=== PATIENT | male | born 1970 | race Caucasian/White ===

== ENCOUNTER 2021-12-08 13:15 | Emergency (ER) | payer OTHER ==
--- OUTSIDE RECORDS SUMMARY | 2021-12-08 13:40 | EXTERNAL MEDICAL SUMMARY RPT | Continuity of Care Document ---
:1970 Author Organization [facility] Address [address] [place] [address] Phone Allergies No information. Encounters No information. Medications No information. Problems date description facility [id number] Chest pain, unspecified [employer] Results No information.
[2021-12-08 14:38] LABS: BASOPHILS # (AUTO) 0.1 10^3/uL (0.0-0.1); BASOPHILS % (AUTO) 0.8 %; EOSINOPHILS # (AUTO) 0.2 10^3/uL (0.0-0.7); EOSINOPHILS % (AUTO) 2.6 %; HCT - HEMATOCRIT 42.6 % (42.0-52.0); HGB - HEMOGLOBIN 14.8 g/dL (14.0-18.0); LYMPHOCYTES # (AUTO) 1.8 10^3/uL (1.5-3.5); LYMPHOCYTES % (AUTO) 23.4 %; MEAN CORPUSCULAR HEMOGLOBIN 32.7 pg (27.0-31.0); MEAN CORPUSCULAR HGB CONC 34.7 g/dL (32.0-36.0); MEAN PLATELET VOLUME 9.8 fL (7.4-11.4); MONOCYTES # (AUTO) 0.6 10^3/uL (0.0-1.0); MONOCYTES % (AUTO) 8.2 %; NEUTROPHILS # (AUTO) 4.9 10^3/uL (1.5-6.6); NEUTROPHILS % (AUTO) 64.7 %; PLT - PLATELET COUNT 253 10^3/uL (130-450); RED BLOOD COUNT 4.53 10^6/uL (4.70-6.10); RED CELL DISTRIBUTION WIDTH 12.1 % (12.0-15.0); WHITE BLOOD COUNT 7.6 x10^3/uL (4.8-10.8)
[2021-12-08 14:50] LABS: ALBUMIN 4.9 g/dL (3.2-5.5); ALBUMIN/GLOBULIN RATIO 1.5 (1.0-2.2); BILIRUBIN,TOTAL 1.1 mg/dL (0.2-1.0); CALCIUM 9.7 mg/dL (8.5-10.3); CREATININE 0.8 mg/dL (0.6-1.2); POTASSIUM 4.2 mmol/L (3.5-5.0); TOTAL PROTEIN 8.1 g/dL (6.7-8.2)
--- NOTE | 2021-12-08 15:47 | ED Physician Documentation ---
History of Present Illness - Stated complaint Stated Complaint: CHEST PX - Chief complaint Chief Complaint: Cardiac - History obtained from History obtained from: Patient - History of Present Illness Timing: How many days ago (3) Pain level max: 5 Pain level now: 3 - Additonal information Additional information: Patient is a 51-year-old who presents to the emergency department with chest pain for the past 2 days. Initially on the left side of the chest, now is on the right side of the chest as well. Worse with movement, coughing. No fevers. No chills. Patient states that they were seen at [facility] urgent care and were told they had an elevated D-dimer so were sent here for a CT angiogram of the chest. The patient does take estradiol. Has not had any leg swelling. No recent travel. No mobilization. No history of DVT. Review of Systems Constitutional: denies: Fever, Chills Throat: denies: Sore throat Respiratory: reports: Cough (mild, dry). denies: Wheezing GI: denies: Vomiting, Diarrhea Skin: denies: Rash Musculoskeletal: denies: Neck pain, Back pain Neurologic: denies: Headache PD PAST MEDICAL HISTORY - Past Medical History Past Medical History: No - Allergies Allergies/Adverse Reactions: Allergies Allergy/AdvReac Type Severity Reaction Status Date / Time adhesive tape Allergy Rash Verified 12/08/21 13:20 Bleach (Sodium Hypochlorite) Allergy Rash Verified 12/08/21 13:20 metoclopramide [From Reglan] Allergy Unknown Verified 12/08/21 13:20 morphine Allergy Emesis Verified 12/08/21 13:20 prochlorperazine Allergy Emesis Verified 12/08/21 13:20 [From Compazine] - Living Situation Living Arrangement: reports: At home - Social History Does the pt smoke?: No Does the pt have substance abuse?: No - Family History Family history: reports: Non contributory PD ED PE NORMAL - Vitals Vital signs reviewed: Yes - General General: Alert and oriented X 3, No acute distress, Well developed/nourished - HEENT HEENT: Moist mucous membranes - Neck Neck: Supple, no meningeal sign - Cardiac Cardiac: RRR, No murmur, Strong equal pulses - Respiratory Respiratory: No respiratory distress, Clear bilaterally - Abdomen Abdomen: Soft, Non tender, Non distended - Derm Derm: Warm and dry - Extremities Extremities: No edema, No calf tenderness / cord - Neuro Neuro: Alert and oriented X 3 - Psych Psych: Normal mood, Normal affect Results - Vitals Vitals: Vital Signs - 24 hr 12/08/21 12/08/21 13:20 16:03 Temperature 36.5 C Heart Rate 63 57 L Respiratory 16 16 Rate Blood Pressure 149/82 H 128/76 O2 Saturation 99 100 Oxygen O2 Source Room air - EKG (time done) 1321 Rate: Rate (enter#) (63) Rhythm: NSR [place]: Normal Intervals: Normal VT QRS: Normal Ischemia: Normal ST segments - Labs Labs: Laboratory Tests 12/08/21 12/08/21 12/08/21 14:30 14:30 14:30 WBC 7.6 RBC 4.53 L Hgb 14.8 Hct 42.6 MCV 94.0 MCH 32.7 H MCHC 34.7 RDW 12.1 Plt Count 253 MPV 9.8 Neut # (Auto) 4.9 Lymph # (Auto) 1.8 [place] # (Auto) 0.6 Eos # (Auto) 0.2 Baso # (Auto) 0.1 Absolute Nucleated RBC 0.00 Nucleated RBC % 0.0 D-Dimer Sodium 138 Potassium 4.2 Chloride 100 L Carbon Dioxide 26 Anion Gap 12.0 BUN 13 Creatinine 0.8 Estimated GFR (MDRD) 102 Glucose 91 Calcium 9.7 Total Bilirubin 1.1 H AST 23 ALT 16 Alkaline Phosphatase 85 Troponin I High Sens 5.9 Total Protein 8.1 Albumin 4.9 Globulin 3.2 Albumin/Globulin Ratio 1.5 Lipase 27 12/08/21 16:01 WBC RBC Hgb Hct MCV MCH MCHC RDW Plt Count MPV Neut # (Auto) Lymph # (Auto) [place] # (Auto) Eos # (Auto) Baso # (Auto) Absolute Nucleated RBC Nucleated RBC % D-Dimer 371.3 H Sodium Potassium Chloride Carbon Dioxide Anion Gap BUN Creatinine Estimated GFR (MDRD) Glucose Calcium Total Bilirubin AST ALT Alkaline Phosphatase Troponin I High Sens Total Protein Albumin Globulin Albumin/Globulin Ratio Lipase - Rads (name of study) CT PA Radiology: Final report received, EMP read contemporaneously, See rad report (no acute abnormality) PD MEDICAL DECISION MAKING - ED course Complexity details: reviewed results, re-evaluated patient, considered differential (No ST elevation ME, no aortic dissection, no PE, no tension pneumothorax, no aortic aneurysm), d/w patient ED course: No acute findings on EKG, chest x-ray or laboratory testing. Patient is well- appearing, nontoxic. Afebrile. Possible pleurisy? No pneumothorax, aortic dissection or pulmonary embolus. No evidence of ACS. Patient counseled regarding signs and symptoms for which I believe and urgent re-evaluation would be necessary. Patient with good understanding of and agreement to plan and is comfortable going home at this time This document was made in part using voice recognition software. While efforts are made to proofread this document, sound alike and grammatical errors may occur. Departure - Departure Disposition: 01 Home, Self Care Clinical Impression: Chest pain Qualifiers: Chest pain type: unspecified Qualified Code(s): R07.9 - Chest pain, unspecified Condition: Good Instructions: ED Chest Pain NonCardiac Follow-Up: Your,doctor in 1 week [Other] Comments: Please follow-up with your doctor for further care. Your laboratory testing, EK G and CT pulmonary angiogram did not show any acute abnormalities at this time. Please return if you worsen. You can use Motrin or Tylenol as needed for pain. Discharge Date/Time: 12/08/21 17:10
[2021-12-08] MEDS ORDERED: IOPAMIDOL-300 100 ML VIAL ONE (15:49)
[2021-12-08 16:04] VITALS: BP 128/76
--- NOTE | 2021-12-08 16:40 | CT Report ---
PROCEDURE: ANGIO CHEST W/WO INDICATIONS: +chest pain, +d-dimer CONTRAST: IV CONTRAST: Optiray 320 ml: 80 PO CONTRAST: *NO PO CONTRAST TECHNIQUE: After the administration of intravenous contrast, 2 mm axial images were acquired from the pulmonary apices to the posterior costophrenic angles during the arterial phase. In addition, 1 mm lung kernel and 5 mm soft tissue kernel reconstructions were performed. 3-dimensional coronal oblique maximum int ensity projection (MIP) reformats, 8 mm axial MIP, and 5 mm coronal and sagittal MPR reformats were t hen performed through the thorax. For radiation dose reduction, the following was used: automated exp osure control, adjustment of mA and/or kV according to patient size. COMPARISON: None FINDINGS: Image quality: Excellent. Pulmonary arteries: Pulmonary arteries are normal in size, and demonstrate no intraluminal filling d efects to suggest central pulmonary embolism. Lungs and pleura: Lungs are clear. No pleural effusions or pneumothorax. Central and peripheral ai rways are patent. Mediastinum: Heart size is normal, without pericardial effusion. No mediastinal or hilar adenopathy . Thoracic aorta is normal in caliber and enhancement. Esophagus is normal in caliber, without hiat al hernia. Bones and chest wall: No suspicious bony lesions. Ribs and thoracic spine appear intact throughout. No axillary or supraclavicular adenopathy. Thyroid is unremarkable as visualized. Abdomen: Visualized upper abdominal solid organs appear normal in the early arterial phase of enhanc ement. IMPRESSION: No evidence acute pulmonary emboli. No evidence acute pulmonary process. CLINICAL RECOMMENDATION STATEMENTS: In patients <35 years with an ITN detected on CT, MRI, or extrathyroidal ultrasound, the Committee re commends further evaluation with dedicated thyroid ultrasound if the nodule is "e1 cm and has no susp icious imaging features, and if the patient has normal life expectancy. In patients "e35 years with an ITN detected on CT, MRI, or extrathyroidal ultrasound, the Committee r ecommends further evaluation with dedicated thyroid ultrasound if the nodule is "e1.5 cm and has no s uspicious imaging features, and if the patient has normal life expectancy. (ACR, 2014) Reviewed by: Cade Somers MD on 12/08/2021 4:39 PM PDT Approved by: Cade Somers MD on 12/08/2021 4:39 PM PDT Station ID: [id number]
[2021-12-08] MEDS ORDERED: IOPAMIDOL-300 100 ML VIAL IVP ONE (16:43)
== END 2021-12-08 17:10 | disposition home or self-care (01) ==
LOC: ED 13:15
DX: R07.9 Chest pain, unspecified (principal)
CPT/HCPCS: 36415; 71275; 80053; 83690; 84484; 85025; 85379; 93005; 99284; Q9967

== ENCOUNTER 2023-01-04 15:30 | Outpatient (CLI) | payer OTHER ==
--- NOTE | 2023-01-04 17:06 | XRAY Report ---
PROCEDURE: Foot 3 View LT INDICATIONS: FOOT PAIN TECHNIQUE: 3 views of the foot were acquired. COMPARISON: None. FINDINGS: Bones: No fractures or dislocations. No suspicious bony lesions. Soft tissues: No suspicious soft tissue calcifications or masses. IMPRESSION: No acute bony abnormality. No findings correlating with the area of pain complaint at the base of the fifth metatarsal. Reviewed by: Cade Somers MD on 01/04/2023 5:04 PM PDT Approved by: Cade Somers MD on 01/04/2023 5:04 PM PDT Station ID: [id number]
== END 2023-01-04 15:45 | disposition home or self-care (01) ==
LOC: DI.N 15:30
PROVIDERS: ATTEND Family Medicine
DX: M79.672 Pain in left foot (principal)

== ENCOUNTER 2023-10-30 11:47 | Emergency (ER) | payer OTHER ==
--- NOTE | 2023-10-30 12:10 | ED Physician Documentation ---
History of Present Illness - Stated complaint Stated Complaint: SIDE PX - Chief complaint Chief Complaint: General - History obtained from History obtained from: Patient, Family - Additonal information Additional information: 53-year-old who identifies as female here with spouse for the evaluation of right rib pain. 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 After a Mohs procedure on the right upper back on October 17 she developed right rib pain that has been particularly worse over the last few days worse with deep breathing, motion. Patient intolerant of all narcotics. When queried on shortness of breath patient vacillates and says yes but probably due to the pain. No new leg pain noting chronic pain from CRPS and sciatica. No leg swelling. PD PAST MEDICAL HISTORY - Past Medical History Past Medical History: Yes - Past Surgical History Past Surgical History: No - Present Medications Home Medications: Ambulatory Orders Medication Instructions Recorded Confirmed Ibuprofen 1 tab PO PRN PRN 10/30/23 10/30/23 estradioL [Estradiol] 4 mg PO DAILY 10/30/23 10/30/23 oxyCODONE [Roxicodone] 0.5 tab PO Q4-6H PRN #15 tablet 10/30/23 - Allergies Allergies/Adverse Reactions: Allergies Allergy/AdvReac Type Severity Reaction Status Date / Time adhesive tape Allergy Rash Verified 10/30/23 11:56 Bleach (Sodium Hypochlorite) Allergy Rash Verified 10/30/23 11:56 metoclopramide [From Reglan] Allergy Unknown Verified 10/30/23 11:56 morphine Allergy Emesis Verified 10/30/23 11:56 prochlorperazine Allergy Emesis Verified 10/30/23 11:56 [From Compazine] hydromorphone [From Dilaudid] AdvReac Emesis Verified 10/30/23 12:10 tramadol AdvReac Emesis Verified 10/30/23 12:10 - Social History Does the pt smoke?: No Smoking Status: Never smoker Does the pt drink ETOH?: No Does the pt have substance abuse?: No - Immunizations Immunizations are current?: No - POLST Patient has POLST: No PD ED PE NORMAL - Vitals Vital signs reviewed: Yes - General General: Alert and oriented X 3, Other (Appearing very uncomfortable and at times wincing with severe pain.) - Neck Neck: Supple, no meningeal sign, No bony TTP - Cardiac Cardiac: RRR, No murmur - Respiratory Respiratory: No respiratory distress, Other (Mohs surgery site over right scapula shallow and healing well. No sign of infection. She is quite tender over the right lower ribs posteriorly and laterally. No abdominal tenderness.) - Abdomen Abdomen: Non tender - Derm Derm: Normal color, Warm and dry - Neuro Neuro: Alert and oriented X 3, Normal speech Results - Vitals Vitals: Vital Signs - 24 hr 10/30/23 10/30/23 10/30/23 11:56 14:00 15:11 Temperature 36.8 C Heart Rate 68 61 57 L Respiratory 20 16 14 Rate Blood Pressure 133/77 H 129/78 139/78 H O2 Saturation 100 100 99 If not protocol 2 : Oxygen Flow, liters/minute Oxygen O2 Source Room air - Labs Labs: Laboratory Tests 10/30/23 10/30/23 10/30/23 12:18 12:18 15:05 WBC 11.7 H RBC 4.08 L Hgb 12.1 L Hct 37.5 L MCV 91.9 MCH 29.7 MCHC 32.3 RDW 12.2 Plt Count 253 MPV 9.3 Neut # (Auto) 7.7 H Lymph # (Auto) 2.3 [place] # (Auto) 0.9 Eos # (Auto) 0.5 Baso # (Auto) 0.1 Absolute Nucleated RBC 0.00 Nucleated RBC % 0.0 Sodium 137 Potassium 4.2 Chloride 101 Carbon Dioxide 29 Anion Gap 7.0 BUN 12 Creatinine 0.7 Estimated GFR (MDRD) 118 Glucose 102 Calcium 10.3 Total Bilirubin 0.4 AST 21 ALT 14 Alkaline Phosphatase 113 Total Protein 7.6 Albumin 4.4 Globulin 3.2 Albumin/Globulin Ratio 1.4 Lipase < 10 L Fluid Source PLEURAL Fluid Color BLOODY Fluid Clarity BLOODY Fluid WBC 5374 Fluid RBC [id number] Fluid Neutrophils % 56 Fluid Lymphocytes % 18 Fluid Monocytes % 2 Fluid Eosinophils % 14 Fluid Macrophages % 9 Fld Mesothelial Cell % 0 Fluid Other Cells % 1 Procedures - Thoracentesis - Major Preparation: Consent obtained, Sterile prep and drape, Sitting, Local - lidocaine Technique: Catheter over needle, Left Fluid: Bloody, Sent for cell count, Sent for culture, Sent for cytology Aftercare: CXR obtained, Patient tolerated well, Dressing applied PD Medical Decision Making - ED course ED course: 53-year-old presents with right-sided chest wall pain apparently after a Mohs procedure. The Mohs site looks fine and should not be deep enough to cause any nerve damage. She does appear quite uncomfortable though so the differential would include PE, pneumonia, metastatic disease to the ribs etc. The pain is reproducible though so doubt coronary syndrome. Pain was difficult to treat, patient declined narcotics because of past side effects. She was initially medicated with Toradol with no relief and this was followed by Tylenol and lidocaine patch with only modest relief, subsequently we tried a small dose of ketamine for pain which she did actually feel was helpful without significant side effects, and this was repeated and a larger dose. Workup in the emergency department demonstrates a CBC showing mild anemia and nonspecific leukocytosis, also mild. CMP was normal. CT imaging of the chest demonstrated a large left pleural effusion which was not present on prior imaging done 2 years ago. Not clear if this is related to her pain since it is on the opposite side. Patient was agreeable to a diagnostic thoracentesis for workup of that. LEFT thoracentesis totaling about 750 mL of very bloody fluid was done. Confirmed with patient that there was no trauma so this is concerning for malignancy and it is sent for cell count, culture, and cytology. Her pain was difficult to control and received several more doses of ketamine for pain (not for sedation or restraint). Subsequently although she said she was intolerant of narcotics stated that 2.5 mg of oxycodone she has taken the past without too much in the way of side effects. Departure - Departure Disposition: 01 Home, Self Care Clinical Impression: Chest wall pain, Pleural effusion Condition: Good Record reviewed to determine appropriate education?: Yes Instructions: ED Strain Chest Wall Prescriptions: oxyCODONE [Roxicodone] 0.5 tab PO Q4-6H PRN #15 tablet PRN Reason: Pain Comments: I sent your prescription electronically to the [facility] in [place]. The cause of your right-sided chest wall pain is unclear, there is no evidence of blood clots, rib fracture, or anything like that. Could be something like the CRPS you have had in the past. We did identify a pleural effusion on the other side, the left side and I will call you in about a week with results from cytology. Call your doctor to arrange a follow-up appointment, make the next available appointment. In the interim, return anytime if worse or if new symptoms develop. I am prescribing a short course of narcotic pain medication for you. These are potentially dangerous and addictive medications that should be used carefully. These medications may constipate you. Take an [id number] stool softener (docusate) twice daily with plenty of water while taking these medications. If you go 24 hours without a bowel movement, take [id number] miralax, per package instructions. Do not drink or drive while taking these medications. If you received narcotic or sedating medications while in the emergency department, do not drive for 24 hours. Store this medication in a safe, secure place and out of reach of children. It is a violation of federal law to give or sell this medication to another person or to use in a manner other than prescribed. The ED will not refill narcotic prescriptions, including prescriptions lost or stolen. To dispose of unwanted medications: 1. [facility] provides a [facility] box for medication in pill form only (no liquids) 8:00 am to 4:30 p.m. Sunday-Sunday in the lobby of the [facility], [address] [place] [address]. Empty pills into ziplock bag before disposal. Call [phone] for information. 2.[employer] is a free service available to all [facility] residents. Go to [email or web address] Note that many narcotic pain relievers also contain Tylenol/acetaminophen. Please ensure that your total dose of acetaminophen from all sources does not e xceed 3 g (3000 mg) per day. Forms: PCP List
[2023-10-30 12:22] LABS: BASOPHILS # (AUTO) 0.1 10^3/uL (0.0-0.1); BASOPHILS % (AUTO) 0.9 %; EOSINOPHILS # (AUTO) 0.5 10^3/uL (0.0-0.7); EOSINOPHILS % (AUTO) 4.6 %; HCT - HEMATOCRIT 37.5 % (42.0-52.0); HGB - HEMOGLOBIN 12.1 g/dL (14.0-18.0); LYMPHOCYTES # (AUTO) 2.3 10^3/uL (1.5-3.5); LYMPHOCYTES % (AUTO) 19.6 %; MEAN CORPUSCULAR HEMOGLOBIN 29.7 pg (27.0-31.0); MEAN CORPUSCULAR HGB CONC 32.3 g/dL (32.0-36.0); MEAN CORPUSCULAR VOLUME 91.9 fL (80.0-94.0); MEAN PLATELET VOLUME 9.3 fL (7.4-11.4); MONOCYTES # (AUTO) 0.9 10^3/uL (0.0-1.0); MONOCYTES % (AUTO) 7.8 %; NEUTROPHILS # (AUTO) 7.7 10^3/uL (1.5-6.6); NEUTROPHILS % (AUTO) 66.2 %; PLT - PLATELET COUNT 253 10^3/uL (130-450); RED BLOOD COUNT 4.08 10^6/uL (4.70-6.10); RED CELL DISTRIBUTION WIDTH 12.2 % (12.0-15.0); WHITE BLOOD COUNT 11.7 x10^3/uL (4.8-10.8)
[2023-10-30] MEDS: KETOROLAC 15 MG/ML VIAL IVP STA (12:28)
[2023-10-30] MEDS ORDERED: iohexoL-300 100 ML VIAL ONE (12:30)
[2023-10-30 12:49] LABS: ALBUMIN 4.4 g/dL (3.2-5.5); ALBUMIN/GLOBULIN RATIO 1.4 (1.0-2.2); ALKALINE PHOSPHATASE 113 IU/L (42-121); ALT ALANINE AMINOTRANSFERASE 14 IU/L (10-60); AST ASPARTATE AMINOTRANSFERASE 21 IU/L (10-42); BILIRUBIN,TOTAL 0.4 mg/dL (0.2-1.0); BUN - BLOOD UREA NITROGEN 12 mg/dL (6-20); CALCIUM 10.3 mg/dL (8.5-10.3); CARBON DIOXIDE - CO2 29 mmol/L (21-32); CHLORIDE 101 mmol/L (101-111); CREATININE 0.7 mg/dL (0.6-1.3); GFR - MDRD 118 (>89); GLUCOSE 102 mg/dL (74-104); LIPASE < 10 U/L (11-82); POTASSIUM 4.2 mmol/L (3.5-4.5); SODIUM 137 mmol/L (135-145); TOTAL PROTEIN 7.6 g/dL (6.4-8.9)
[2023-10-30] MEDS: ACETAMINOPHEN 500 MG TABLET PO STA (13:34)
[2023-10-30] MEDS: LIDOCAINE PATCH 5% TOP STA (13:35)
[2023-10-30] MEDS: KETAMINE 500 MG/10 ML VIAL IVP STA ×4 (13:43→17:12)
[2023-10-30] MEDS: iohexoL-300 100 ML VIAL IVP ONE (13:43)
--- NOTE | 2023-10-30 13:57 | CT Report ---
PROCEDURE: Angio Chest INDICATIONS: R rib pain, pe protocol CONTRAST: Omni 300 80ml TECHNIQUE: After the administration of intravenous contrast, 2 mm axial images were acquired from the pulmonary apices to the posterior costophrenic angles during the arterial phase. In addition, 1 mm lung kernel and 5 mm soft tissue kernel reconstructions were performed. 3-dimensional coronal oblique maximum int ensity projection (MIP) reformats, 8 mm axial MIP, and 5 mm coronal and sagittal MPR reformats were t hen performed through the thorax. For radiation dose reduction, the following was used: automated exp osure control, adjustment of mA and/or kV according to patient size. COMPARISON: None. FINDINGS: Image quality: Diagnostic sensitivity study limited secondary to suboptimal contrast opacification of the pulmonary arteries. Large vessel: No large central filling defect within the opacified pulmonary arteries. No evidence of acute aortic syndrome. No thoracic aortic aneurysm. Lungs and pleura: Left basilar compressive atelectasis. Large left pleural effusion. 5.3 x 2.8 cm loc ulated pleural effusion in the anterior left lung base. No pneumothorax. No suspicious pulmonary nod ules which require follow up. Mediastinum: Heart size is normal. No pericardial effusion. No large vessel abnormality. No mediastin al adenopathy by size criteria. Chest wall and lower neck: Thyroid is unremarkable. No axillary or supraclavicular adenopathy by size . Bones: No aggressive osseous abnormality. Spine degenerative disc disease and facet arthropathy are n oted. Upper Abdomen: Unremarkable. IMPRESSION: Diagnostic sensitivity study for pulmonary embolus limited secondary to suboptimal pulmonary artery o pacification. No large central pulmonary embolus. Large left pleural effusion including loculated effusion in the anterior left lung base.. Left basilar compressive atelectasis. Reviewed by: Bushra Guerrero MD, PhD on 10/30/2023 1:55 PM PDT Approved by: Bushra Guerrero MD, PhD on 10/30/2023 1:55 PM PDT Station ID: [id number]
[2023-10-30] MEDS: ONDANSETRON 4 MG/2 ML VIAL IVP STA (14:28)
[2023-10-30] MEDS: LORazepam 2 MG/ML VIAL IVP STA (14:36)
[2023-10-30 15:41] LABS: CC,BF RBC 3830000 /mm^3; CC,BF WBC 5374 /mm^3
[2023-10-30 15:53] LABS: EOSINOPHILS %,BODY FLUID 14 %; LYMPHOCYTES %,BODY FLUID 18 %; MACROPHAGES %,BODY FLUID 9 %; MONOCYTES %,BODY FLUID 2 %; NEUTROPHILS %, BF 56 %
[2023-10-30 15:54] LABS: BF CLARITY BLOODY; BF COLOR BLOODY; BF SOURCE PLEURAL; MESOTHELIAL %, BF 0 %; OTHER CELLS %,BODY FLUID 1 %
--- NOTE | 2023-10-30 16:14 | XRAY Report ---
PROCEDURE: Post Thoracentesis 1V CXR INDICATIONS: post thoracentesis TECHNIQUE: One view of the chest was acquired. COMPARISON: CT same day FINDINGS: Surgical changes and devices: None. Lungs and pleura: Decreased left pleural effusion. Mild persistent basal opacities. No pneumothorax. Mediastinum: Normal heart size Bones and chest wall: Degenerative changes. IMPRESSION: Decreased left pleural effusions. No significant pneumothorax. Mild bibasilar persistent opacities. Reviewed by: Elder Mooney MD on 10/30/2023 4:13 PM PDT Approved by: Elder Mooney MD on 10/30/2023 4:13 PM PDT Station ID: [id number]
[2023-10-30] MEDS: PROMETHAZINE INJ 25 MG in SODIUM CHLORIDE 0.9% 50 ML IV STA (16:28)
[2023-10-30 17:10] VITALS: O2SAT 100
[2023-10-30] MEDS: oxyCODONE 5 MG TABLET PO STA (17:10)
[2023-10-30 17:55] VITALS: BP 136/84
== END 2023-10-30 17:46 | disposition home or self-care (01) ==
LOC: ED 11:47
DX: J90 Pleural effusion, not elsewhere classified (principal); R07.89 Other chest pain
CPT/HCPCS: 32554; 36415; 71275; 80053; 83690; 85025; 87070; 87205; 89051; 96374; 96375; 96376; 99285; A9270; J2060; J7040; Q9967

== ENCOUNTER 2023-11-03 19:29 | Outpatient (CLI) | payer OTHER | END 2023-11-03 23:59 | disposition critical access hospital (66) | LOC: EMS 19:29 | DX: R42 Dizziness and giddiness (principal); R07.89 Other chest pain; R03.1 Nonspecific low blood-pressure reading | CPT/HCPCS: A0425; A0427 ==

== ENCOUNTER 2023-11-03 19:54 | Emergency (ER) | payer OTHER ==
--- NOTE | 2023-11-03 20:03 | ED Physician Documentation ---
PD HPI CHEST PAIN - Stated complaint Stated Complaint: CHEST PX/DIZZINESS - Chief complaint Chief Complaint: Cardiac - History obtained from History obtained from: Patient - Additional information Additional information: HPI from patient. Patient was treated and released from this emergency department 4 days ago; At that time, the patient's chief complaint was right-sided chest pain. There were no particularly remarkable findings on blood tests, but CT scan of the chest revealed a large left-sided pleural effusion. There was no evidence of PE on this study. The pleural effusion was considered likely incidental, given that the chest pain was right sided. A diagnostic thoracentesis was undertaken; ED MD note indicates approximately 750 cc of bloody fluid was removed by this procedure. The pathology report indicates no malignant cells and the fluid culture has no growth after 3 days. Patient returns at this time due to ongoing chest pain, although at this time the chest pain is bilateral; the patient indicates it is still predominantly right-sided. She also complains of bilateral hip pain, left significantly more than right sided. Patient denies injury and indicates that she has had similar hip pain in the past although the chronicity is unclear to me patient is indicating hip pain is far more severe since earlier today and has been in the past. Patient denies shortness of breath although there is a pleuritic component to the chest pain.Patient has not taken her temperature at home although has had episodic diaphoresis since earlier today; patient significant other (in ED at patient's bedside) says that the patient had episodes of feeling abnormally hot to the touch. Patient has not noted any dark black/tarry stools nor any blood per rectum. Denies vomiting. The patient is also describing near-syncopal episode this evening while ambulating at home. Patient says that she had rapid onset of generalized weakness, lightheadedness. Patient significant other says that she had to help the patient get to a chair to sit back down. Review of Systems Constitutional: reports: Sweats. denies: Chills Cardiac: reports: Chest pain / pressure. denies: Palpitations, Pedal edema Respiratory: denies: Dyspnea, Cough GI: denies: Abdominal Pain, Nausea, Vomiting, Hematemesis, Bloody / black stool : denies: Dysuria, Frequency Musculoskeletal: denies: Extremity swelling Neurologic: denies: Focal weakness, Numbness, Headache PD PAST MEDICAL HISTORY - Past Medical History Past Medical History: Yes - Past Surgical History Past Surgical History: No - Present Medications Home Medications: Ambulatory Orders Medication Instructions Recorded Confirmed Ibuprofen 200 mg PO Q6H PRN 10/30/23 11/04/23 estradioL [Estradiol] 4 mg PO DAILY 10/30/23 11/04/23 oxyCODONE [Roxicodone] 0.5 tab PO Q4-6H PRN #15 tablet 10/30/23 11/04/23 - Allergies Allergies/Adverse Reactions: Allergies Allergy/AdvReac Type Severity Reaction Status Date / Time adhesive tape Allergy Rash Verified 11/03/23 19:55 Bleach (Sodium Hypochlorite) Allergy Rash Verified 11/03/23 19:55 metoclopramide [From Reglan] Allergy Unknown Verified 11/03/23 19:55 morphine Allergy Emesis Verified 11/03/23 19:55 prochlorperazine Allergy Emesis Verified 11/03/23 19:55 [From Compazine] hydromorphone [From Dilaudid] AdvReac Emesis Verified 11/03/23 19:55 tramadol AdvReac Emesis Verified 11/03/23 19:55 - Social History Does the pt smoke?: No Smoking Status: Never smoker Does the pt drink ETOH?: No Does the pt have substance abuse?: No - Immunizations Immunizations are current?: No - POLST Patient has POLST: No PD ED PE NORMAL - Vitals Vital signs reviewed: Yes - General General: Alert and oriented X 3, No acute distress, Well developed/nourished - Cardiac Cardiac: RRR, No murmur - Respiratory Respiratory: No respiratory distress, Clear bilaterally - Abdomen Abdomen: Soft, Non tender, Non distended - Back Back: No CVA TTP - Derm Derm: Normal color, Warm and dry - Extremities Extremities: No edema PD ED PE EXPANDED - Rectal Rectal: Heme Occult Neg - QC+, Parquet Floor Layer present. No: Mass Results - Vitals Vitals: Vital Signs - 24 hr 11/03/23 11/03/23 11/03/23 19:55 21:17 22:42 Temperature 36.8 C Heart Rate 71 75 72 Respiratory 18 12 18 Rate Blood Pressure 105/64 95/73 97/58 L O2 Saturation 98 100 97 11/03/23 11/04/23 11/04/23 23:51 01:08 02:17 Temperature Heart Rate 64 66 67 Respiratory 18 18 19 Rate Blood Pressure 99/57 L 116/72 105/61 O2 Saturation 100 98 96 11/04/23 11/04/23 11/04/23 04:18 07:18 09:00 Temperature 36.9 C 37 C Heart Rate 59 L 67 63 Respiratory 17 16 12 Rate Blood Pressure 107/64 119/74 115/65 O2 Saturation 96 97 97 Oxygen O2 Source Room air - EKG (time done) No standard instances EKG releavant findings:: EKG personally interpreted by author of this note. Relevant findings are: Rate: Rate (enter#) (68) Rhythm: NSR [place]: Normal Intervals: Normal FL QRS: Normal Ischemia: Normal ST segments - Labs Labs: Microbiology 11/03/23 22:03 Occult Blood - Final Stool Laboratory Tests 11/03/23 11/03/23 11/03/23 19:55 19:55 19:55 WBC 13.3 H RBC 2.90 L Hgb 8.7 L Hct 26.5 L MCV 91.4 MCH 30.0 MCHC 32.8 RDW 12.1 Plt Count 215 MPV 10.0 Reticulocyte % (Auto) Neut # (Auto) 9.6 H Lymph # (Auto) 1.7 [place]on # (Auto) 1.1 H Eos # (Auto) 0.7 Baso # (Auto) 0.1 Absolute Nucleated RBC 0.00 Nucleated RBC % 0.0 Absolute Retic Sodium 134 L Potassium 3.6 Chloride 102 Carbon Dioxide 26 Anion Gap 6.0 BUN 13 Creatinine 0.7 Estimated GFR (MDRD) 87 L Glucose 138 H Calcium 8.6 Total Bilirubin 0.4 AST 15 ALT 10 Alkaline Phosphatase 91 Lactate Dehydrogenase Troponin I High Sens 3.5 Total Protein 5.9 L Albumin 3.3 Globulin 2.6 Albumin/Globulin Ratio 1.3 Lipase 15 11/03/23 11/03/23 11/03/23 19:55 23:49 23:49 WBC RBC 2.84 L Hgb 8.5 L Hct 26.4 L MCV MCH MCHC RDW Plt Count MPV Reticulocyte % (Auto) 1.74 Neut # (Auto) Lymph # (Auto) Weston # (Auto) Eos # (Auto) Baso # (Auto) Absolute Nucleated RBC Nucleated RBC % Absolute Retic 0.049 Sodium Potassium Chloride Carbon Dioxide Anion Gap BUN Creatinine Estimated GFR (MDRD) Glucose Calcium Total Bilirubin AST ALT Alkaline Phosphatase Lactate Dehydrogenase 190 Troponin I High Sens Total Protein Albumin Globulin Albumin/Globulin Ratio Lipase 11/04/23 03:52 WBC RBC Hgb 8.4 L Hct 25.9 L MCV MCH MCHC RDW Plt Count MPV Reticulocyte % (Auto) Neut # (Auto) Lymph # (Auto) [place]on # (Auto) Eos # (Auto) Baso # (Auto) Absolute Nucleated RBC Nucleated RBC % Absolute Retic Sodium Potassium Chloride Carbon Dioxide Anion Gap BUN Creatinine Estimated GFR (MDRD) Glucose Calcium Total Bilirubin AST ALT Alkaline Phosphatase Lactate Dehydrogenase Troponin I High Sens Total Protein Albumin Globulin Albumin/Globulin Ratio Lipase - Rads (name of study) CXR Relevant Findings:: Prelim report reviewed, See rad report CT chest w/ IV contrast Relevant Findings:: Prelim report reviewed, See rad report CT A/P w/ IV contrast Relevant Findings:: Prelim report reviewed, See rad report PD Medical Decision Making - ED course Complexity details: reviewed old records, reviewed results, re-evaluated patient, considered differential, d/w patient ED course: Most concerning finding on tonight's initial testing is hgb 8.7, down from 12.1 just four days ago. Four-hour repeat hgb 8.5, and another four-hours later hgb is 8.4. Guaiac negative. CXR interpreted by radiologist as "No pneumothorax. Right lung is clear. The left pleural effusion and position is stable from prior CT scanning posteriorly, inferiorly. What appears to be an anterior left loculated pleural effusion is also again seen." Is not clear to me why the comparative study is the CT scan rather than the post-thoracentesis chest x-ray that was performed on that same visit. Given the significant drop in hemoglobin over these past 4 days without apparent source/site of bleeding, a CT scan of the chest, abdomen, and pelvis (all performed with IV contrast) was then undertaken. The radiologist interpretation of the CT chest includes "diminished left-sided pleural effusion remaining moderately large in quantity. No change in an anterior ovoid apparent necrotic mass present also 10/30/2023." There is still a significant we sized pleural effusion after 750 cc thoracentesis 4 days ago is unexpected. Also, there is no mention on the radiologist's interpretation of the CT scan performed 4 days ago of of any necrotic mass. Also noted is "avoid hypodensity within the upper right hepatic lobe shows unusual peripheral enhancement in the liver parenchyma, worrisome for representing malignancy." Regarding the CT of the abdomen and pelvis, again, radiologist interpretation includes note that the left-sided pleural effusion is only slightly reduced in volume from previous. 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 Further testing would be appropriate in the inpatient setting at an appropriate facility with higher level of care to include specialists such as pulmonology; patient says she has an initial appointment to meet with a preparation supervisor canning in [place] tomorrow (to follow up on the results of the previous ED visit). At the end of my shift, we are waiting to hear from [facility]. I was informed that beds are available at the facility, but that the hospitalist would not be available to discuss this case until later this morning. [facility] was also contacted and at end of my shift, waiting to hear back from [facility] regarding bed availability. Thus, care of this patient is turned over to the oncoming ED physician (Dr. Eden) at the end of my shift. Departure - Departure Forms: PCP List
[2023-11-03 20:22] LABS: BASOPHILS # (AUTO) 0.1 10^3/uL (0.0-0.1); BASOPHILS % (AUTO) 0.7 %; EOSINOPHILS # (AUTO) 0.7 10^3/uL (0.0-0.7); EOSINOPHILS % (AUTO) 5.4 %; HCT - HEMATOCRIT 26.5 % (37.0-47.0); HGB - HEMOGLOBIN 8.7 g/dL (12.0-16.0); LYMPHOCYTES # (AUTO) 1.7 10^3/uL (1.5-3.5); LYMPHOCYTES % (AUTO) 12.7 %; MEAN CORPUSCULAR HGB CONC 32.8 g/dL (32.0-36.0); MEAN CORPUSCULAR VOLUME 91.4 fL (81.0-99.0); MONOCYTES # (AUTO) 1.1 10^3/uL (0.0-1.0); MONOCYTES % (AUTO) 7.9 %; NEUTROPHILS # (AUTO) 9.6 10^3/uL (1.5-6.6); NEUTROPHILS % (AUTO) 72.7 %; PLT - PLATELET COUNT 215 10^3/uL (130-450); RED CELL DISTRIBUTION WIDTH 12.1 % (12.0-15.0); WHITE BLOOD COUNT 13.3 x10^3/uL (4.8-10.8)
[2023-11-03] MEDS: KETOROLAC 30 MG/ML VIAL IVP STA (20:35)
[2023-11-03 20:38] LABS: ALBUMIN 3.3 g/dL (3.2-5.5); ALBUMIN/GLOBULIN RATIO 1.3 (1.0-2.2); BILIRUBIN,TOTAL 0.4 mg/dL (0.2-1.0); CALCIUM 8.6 mg/dL (8.5-10.3); CREATININE 0.7 mg/dL (0.6-1.3); POTASSIUM 3.6 mmol/L (3.5-4.5); TOTAL PROTEIN 5.9 g/dL (6.4-8.9)
--- NOTE | 2023-11-03 21:15 | XRAY Report ---
PROCEDURE: Chest 2V INDICATIONS: chest pain TECHNIQUE: 2 views of the chest were acquired. COMPARISON: Prior chest CT 10/30/2023 reviewed. FINDINGS: Surgical changes and devices: None. Lungs and pleura: No pneumothorax. Right lung is clear. The left pleural effusion and position is st able from prior CT scanning posteriorly, inferiorly. What appears to be an anterior left loculated pl eural effusion is also again seen. Mediastinum: Mediastinal contours appear normal. Heart size is normal. Bones and chest wall: No suspicious bony lesions. Overlying soft tissues appear unremarkable. IMPRESSION: Left-sided posterior inferior pleural effusion and left anterior mid chest loculated pleural effusion stable from prior CT scanning. No pneumothorax. No definite new abnormality found. Reviewed by: Yovany Woodall MD on 11/03/2023 9:13 PM PDT Approved by: Yovany Woodall MD on 11/03/2023 9:13 PM PDT Station ID: [id number]
[2023-11-03 23:53] LABS: HCT - HEMATOCRIT 26.4 % (37.0-47.0); HGB - HEMOGLOBIN 8.5 g/dL (12.0-16.0)
[2023-11-04 00:55] LABS: ABSOLUTE RETICS # AUTO 0.049 10^6/uL (0.020-0.110); RED BLOOD COUNT 2.84 10^6/uL (4.20-5.40); RETICULOCYTE COUNT % (AUTO) 1.74 % (0.5-2.3)
[2023-11-04] MEDS ORDERED: iohexoL-300 100 ML VIAL ONE (01:04)
[2023-11-04] MEDS: ONDANSETRON 4 MG/2 ML VIAL IVP STA ×2 (01:08→07:58)
[2023-11-04] MEDS: oxyCODONE 5 MG TABLET PO STA ×2 (01:13→07:52)
[2023-11-04] MEDS: iohexoL-300 100 ML VIAL IVP ONE (01:48)
--- NOTE | 2023-11-04 02:16 | CT Report ---
PROCEDURE: Abdomen/Pelvis W INDICATIONS: new anemia w/o source, recent thoracentesis CONTRAST: 100 ML OMNI 300 TECHNIQUE: After the administration of intravenous contrast, a CT scan of the abdomen and pelvis was performed. Images were recorded and evaluated at appropriate window settings. Reformats: coronal and sagittal. F or radiation dose reduction, the following was used: automated exposure control, adjustment of mA and /or kV according to patient size. COMPARISON: Recent chest CT 10/30/2023.. FINDINGS: Image quality: Diagnostic. Lower chest: Left-sided pleural effusion posteriorly is again noted, slightly reduced in volume. Repo rtedly thoracentesis was performed same day as the chest CT. There is what appears to be a necrotic m ass at the anterior left chest mildly impinging on the cardiac silhouette. This is unchanged from the prior examination. Liver: No definite solid mass. An ovoid 2.0 cm maximal dimension hypodensity is seen within the right hepatic lobe superiorly, not visible on the prior chest CT due to phase of contrast enhancement. Thi s is indeterminant in etiology. Gallbladder and biliary tree: Normal. Spleen: No splenomegaly. Pancreas: No pancreatic ductal dilation. Adrenals: No adrenal nodule. Kidneys and ureters: No hydronephrosis. No renal cystic lesion which requires follow up. No solid mas s. Stomach, bowel and peritoneum: No bowel distension. No pathologic free fluid. Lymph nodes: No central or retroperitoneal adenopathy. Vessels: No infrarenal aortic aneurysm. Note is made of narrowing of the lower abdominal aorta with i rregular atherosclerotic and partially calcified plaquing with less than 50% luminal area preserved. This is seen on series 2 image 64. PELVIS Reproductive organs: Unremarkable. Bladder: No abnormal wall thickening, accounting for underdistention. Pelvic lymph nodes: No pelvic adenopathy by size criteria. Bones: An osteolytic lesion measuring 1 x 2.5 cm is present within the right iliac bone, causing thin von of the anterior cortex but a exophytic soft tissue mass is not identified in that area. This is best seen on CT series 2 image 94.. Other: No significant ventral or inguinal hernia. IMPRESSION: Small reduction in size of a moderately large left pleural effusion. Left anterior necro tic mass lesion previously present and unchanged from recent chest CT scanning 10/30/2023. Indeterminant small liver hypodensity seen in the upper right hepatic lobe, not visualized on the rec ent chest CT but likely due to an early phase of contrast enhancement rather than short-term interval development. Osteolytic bone lesion right iliac wing Reduction in the luminal caliber of the mid to lower abdominal aorta due to what appears to be athero sclerotic partially calcified plaquing with the stenosis results in greater than 50%. No aneurysm is associated. Reviewed by: Yovany Woodall MD on 11/04/2023 2:14 AM PDT Approved by: Yovany Woodall MD on 11/04/2023 2:14 AM PDT Station ID: [id number]
--- NOTE | 2023-11-04 02:22 | CT Report ---
PROCEDURE: Chest W INDICATIONS: new anemia, recent thoracentesis CONTRAST: 100 ML OMNI 300 TECHNIQUE: After the administration of intravenous contrast, a CT scan of the chest was performed. Images were recorded and evaluated at appropriate window settings. Reformats: axial MIP of the chest, coronal and sagittal. For radiation dose reduction, the following was used: automated exposure control, adjustme nt of mA and/or kV according to patient size. COMPARISON: 10/30/2023 CT angiogram of the chest reviewed. A thoracentesis was performed 10/30/2023 al so.. FINDINGS: Image quality: Diagnostic. Chest wall and lower neck: No thyroid nodule which requires sonographic follow up. No axillary or sup raclavicular adenopathy by size. Lungs and pleura: No consolidation. No right-sided pleural effusions. Diminished left-sided pleural e ffusion remaining moderately large in quantity. No change in an anterior ovoid apparent necrotic mass present also 10/30/2023. This is adjacent to the left ventricular apex, and has not diminished or enl arged in size measuring up to 4.0 x 7.8 cm more superiorly at the lateral upper left chest a smaller ovoid similar appearing mass was previously present and also has not further enlarged were diminished in size. No pneumothorax. No suspicious pulmonary nodules which require follow up. Mediastinum: Heart size is normal. No pericardial effusion. No large vessel abnormality. No mediastin al adenopathy by size criteria. Bones: No aggressive osseous abnormality. Upper Abdomen: The ovoid hypodensity seen within the upper right hepatic lobe on abdominal/pelvic CT today shows imaging findings worrisome for potentially representing malignancy given a pattern of mik rounding hyperenhancement. This would not be expected with a simple cyst was present as cause of that appearance.. IMPRESSION: Diminished likely exudative left effusion. No sign of pneumothorax. Necrotic large mass anterior border of the left lower lobe, impinging on the left ventricular apex to a mild degree. This does not appear invasive into the pericardium. Smaller similar lateral upper lef t hemithorax presumed malignant nodule also is stable with reference to the recent prior CT pulmonary angiogram. Ovoid hypodensity within the upper right hepatic lobe shows unusual peripheral enhancement in the alejandra er parenchyma, worrisome for representing malignancy. A cyst would not be expected to produce adjacen t increased vascularity. Reviewed by: Yovany Woodall MD on 11/04/2023 2:21 AM PDT Approved by: Yovany Woodall MD on 11/04/2023 2:21 AM PDT Station ID: [id number]
[2023-11-04 04:01] LABS: HCT - HEMATOCRIT 25.9 % (37.0-47.0); HGB - HEMOGLOBIN 8.4 g/dL (12.0-16.0)
[2023-11-04 07:24] VITALS: O2SAT 97
--- NOTE | 2023-11-04 08:57 | PHARMACY PROGRESS NOTE ---
- Best Possible Medication History Admit Date and Time: Processed by: Nursing Medications reviewed in ED?: Yes Medication History completed: Yes Patient Interview: Completed Secondary Source(s): Pharmacy records, Insurance records As the person ultimately responsible for medication therapy, providers are able to order a medication from an existing home medication list in [facility] via the "Reconcile Routine" prior to Confirmation of that medication by therapeutic support staff. Such practice is discouraged except when the physician, in their clinical judgment, deems that a medical need exists for a medication without regard to previous use.
[2023-11-04 10:19] LABS: INR 1.3 (0.8-1.2); PT - PROTHROMBIN TIME 13.9 secs (9.9-12.6)
[2023-11-04 11:47] VITALS: BP 112/67
[2023-11-04] MEDS: HYDROmorphone 0.5 MG/0.5 ML SYRINGE IVP STA (11:57)
--- NOTE | 2023-11-22 15:33 | ED Physician Documentation ---
ED Addendum - Addendum Addendum: 11/22/23 15:31 The patient was not signed out to me pending arrangement of disposition, but was dispositioned by Dr. Kapadia. He received prn medications by my order while awaiting transfer in the ED. Final impression: 1. Chest pain Disposition, as per Dr. Kapadia' note: Transfer to [place]. 11/22/23 15:35 11/22/23 15:36
== END 2023-11-04 12:15 | disposition short-term general hospital (02) ==
LOC: EDSEX → ED 19:54
DX: R07.9 Chest pain, unspecified (principal); R42 Dizziness and giddiness
CPT/HCPCS: 36415; 71046; 71260; 74177; 80053; 82272; 83615; 83690; 84484; 85014; 85018; 85025; 85045; 85610; 87635; 93005; 96374; 96375; 96376; 99285; A9270; J1170; Q9967

== ENCOUNTER 2023-11-14 15:31 | Observation (INO) | payer OTHER ==
[2023-11-14 16:24] LABS: BASOPHILS # (AUTO) 0.1 10^3/uL (0.0-0.1); BASOPHILS % (AUTO) 0.7 %; EOSINOPHILS # (AUTO) 0.8 10^3/uL (0.0-0.7); HCT - HEMATOCRIT 32.5 % (37.0-47.0); HGB - HEMOGLOBIN 10.4 g/dL (12.0-16.0); LYMPHOCYTES # (AUTO) 1.8 10^3/uL (1.5-3.5); LYMPHOCYTES % (AUTO) 13.1 %; MEAN CORPUSCULAR HEMOGLOBIN 28.8 pg (27.0-31.0); MEAN PLATELET VOLUME 9.3 fL (7.9-10.8); MONOCYTES # (AUTO) 0.8 10^3/uL (0.0-1.0); MONOCYTES % (AUTO) 6.1 %; NEUTROPHILS # (AUTO) 10.1 10^3/uL (1.5-6.6); NEUTROPHILS % (AUTO) 73.2 %; PLT - PLATELET COUNT 417 10^3/uL (130-450); RED BLOOD COUNT 3.61 10^6/uL (4.20-5.40); RED CELL DISTRIBUTION WIDTH 12.4 % (12.0-15.0); WHITE BLOOD COUNT 13.8 x10^3/uL (4.8-10.8)
[2023-11-14] MEDS ORDERED: iohexoL-300 100 ML VIAL ONE (16:31)
--- NOTE | 2023-11-14 16:36 | ED Physician Documentation ---
History of Present Illness - Stated complaint Stated Complaint: HIP PX - Chief complaint Chief Complaint: General - Additonal information Additional information: 53-year-old male to female w/ History of fibromyalgia, lymphoma in remission, sc iaticapresents emergency department for ongoing worsening bilateral hip pain.Patient was seen here 10/30/2023 originally for originally right rib pain she had a Mohs procedure right upper back on October 17, she was also found to have a pleural effusion on that time on the left-hand side and it was drained and 750 mL of very bloody fluid was removed which at that point in time was concerning for malignancy. The cytology report was negative at that point in time for malignant cells and it said that specimen consist of blood elements of rare reactive benign mesothelial cells. She presented back to the emergency department 11/02 for worsening ongoing chest pain and bilateral hip pain at that point in time left hip pain was worse than right. She was then sent to the [facility] for hospitalization for about a week however patient's reports that she was not given much information as to why she has been having such bad bilateral hip pain as well as why she had that large left pleural effusion. She has a PET scan coming up mid November that was ordered by her primary care provider through the [facility] but feels like at this point in time her bilateral hip pain is so severe that she is having a really hard time controlling it at home despite taking oxycodone and Tylenol. On previous CT scan it does reveal that there is possible Osteolytic bone lesion on the right iliac wing she was notified of this at this time but has not had any follow-up with any sort of specialist since this has been told to her and since [facility] Over the last month or 2 she has had about 20 pound unintentional weight loss, poor appetite and just generalized fatigue and malaise PD PAST MEDICAL HISTORY - Past Medical History Musculoskeletal: Fibromyalgia, Chronic back pain Other Past Medical History: Chronic regional pain syndrome - Past Surgical History Past Surgical History: No - Present Medications Home Medications: Ambulatory Orders Medication Instructions Recorded Confirmed estradioL [Estradiol] 4 mg PO DAILY 10/30/23 11/14/23 Acetaminophen [Tylenol] 500 mg PO Q4-6H PRN 11/14/23 11/14/23 Diclofenac Sodium 1% Gel [Voltaren 1 applic TOP PRN PRN 11/14/23 11/14/23 Gel] Nortriptyline [Pamelor] 10 mg PO HS 11/14/23 11/14/23 Ondansetron HCl 4 mg PO PRN PRN 11/14/23 11/14/23 oxyCODONE [Roxicodone] 1 tab PO Q4-6H PRN 11/14/23 11/14/23 - Allergies Allergies/Adverse Reactions: Allergies Allergy/AdvReac Type Severity Reaction Status Date / Time adhesive tape Allergy Rash Verified 11/14/23 15:44 Bleach (Sodium Hypochlorite) Allergy Rash Verified 11/14/23 15:44 metoclopramide [From Reglan] Allergy Unknown Verified 11/14/23 15:44 morphine Allergy Emesis Verified 11/14/23 15:44 prochlorperazine Allergy Emesis Verified 11/14/23 15:44 [From Compazine] hydromorphone [From Dilaudid] AdvReac Emesis Verified 11/14/23 15:44 tramadol AdvReac Emesis Verified 11/14/23 15:44 - Social History Does the pt smoke?: No Smoking Status: Never smoker Does the pt drink ETOH?: No Does the pt have substance abuse?: No - Immunizations Immunizations are current?: No - POLST Patient has POLST: No PD ED PE NORMAL - Vitals Vital signs reviewed: Yes - General General: Alert and oriented X 3, Other (Ill-appearing in acute distress due to severe pain) - HEENT HEENT: Atraumatic, PERRL - Neck Neck: Supple, no meningeal sign - Cardiac Cardiac: RRR, No murmur, No gallop - Respiratory Respiratory: Other (Diminished breath sounds bilaterally) - Abdomen Abdomen: Soft, Non distended, Other (Diminished bowel sounds) - Back Back: No CVA TTP - Derm Derm: Warm and dry, No rash, Other (Pale) - Extremities Extremities: Other (Severe bilateral hip pain with tenderness severe bilateral hip pain with flexion extension of bilateral lower extremity) - Neuro Neuro: Alert and oriented X 3, inside meter tester 2-12 intact, No motor deficit, No sensory deficit, Normal speech Eye Opening: Spontaneous Motor: Obeys Commands Verbal: Oriented GCS Score: 15 - Psych Psych: Normal mood, Normal affect Results - Vitals Vitals: Vital Signs - 24 hr 04/03/24 04/03/24 04/03/24 15:36 16:11 17:00 Temperature 36.1 C L Heart Rate 70 65 Respiratory 16 17 22 Rate Blood Pressure 118/69 123/100 H O2 Saturation 100 99 11/14/23 11/14/23 18:22 19:14 Temperature Heart Rate 68 Respiratory 16 17 Rate Blood Pressure 113/78 O2 Saturation 97 Oxygen O2 Source Room air - Labs Labs: Laboratory Tests 11/14/23 11/14/23 16:17 16:17 WBC 13.8 H RBC 3.61 L Hgb 10.4 L Hct 32.5 L MCV 90.0 MCH 28.8 MCHC 32.0 RDW 12.4 Plt Count 417 MPV 9.3 Neut # (Auto) 10.1 H Lymph # (Auto) 1.8 [place] # (Auto) 0.8 Eos # (Auto) 0.8 H Baso # (Auto) 0.1 Absolute Nucleated RBC 0.00 Nucleated RBC % 0.0 Sodium 135 Potassium 4.4 Chloride 99 L Carbon Dioxide 29 Anion Gap 7.0 BUN 12 Creatinine 0.7 Estimated GFR (MDRD) 87 L Glucose 98 Calcium 10.0 Magnesium 1.8 Total Bilirubin 0.4 AST 19 ALT 21 Alkaline Phosphatase 145 H Total Protein 7.6 Albumin 3.7 Globulin 3.9 Albumin/Globulin Ratio 0.9 L - Rads (name of study) CT chest with Relevant Findings:: Final report received, EMP independent interpretation of test, Other (Pleural effusion appears to be resolved with bibasilar atelectasis, pleural based necrotic appearing lesion involving anterior and lateral periphery of left upper lobe. 7 mm spiculated nodule most likely due to metastatic disease, mildly enlarged mediastinal right hilar lymph nodes) CT abdomen pelvis with Relevant Findings:: Final report received, EMP independent interpretation of test, Other (Lytic lesion involving right iliac wing without fracture as well as subtle disruption of the anterior posterior cortex of the right iliac wing with associated mass. Hypodensity involving right hepatic dome. Fecal stasis throughout ascending colon no bowel obstruction) PD Medical Decision Making - ED course ED course: 53-year-old female presents emergency department for ongoing bilateral hip pain. [facility] get [facility] there is no new answers as to what is going on with patient's abnormal CT scan. See HPI for further details about this. Repeat CT was complete and it is ongoing stable appearing lytic lesion involving the right iliac wing without fracture. Subtle disruption of the anterior posterior cortex of the right iliac wing associated with possible mass. She also is found to have a stable hypodensity right hepatic dome most likely due to malignancy. Chest CT shows that her pleural effusion has resolved but she does appear to have a pleural-based necrotic appearing lesion involving the anterior and lateral peripheral of left upper lobe. Labs were collected here in the emergency department she has leukocytosis, 13.8 with mild anemia hemoglobin 10.4, hematocrit 32.5 which is actually improved since her recent visit. Elevated neutrophils at 10.1. CMP is fairly unremarkable although she does have elevated alk phos fate at 145. We attempted to control patient's pain with multiple rounds of p.o. and IV Dilaudid here in the emergency department and patient remains in significant amount of pain I do not believe that she we will to manage her pain at home with p.o. pain medications and patient agrees with this. I have a high clinical suspicion that this is due to some sort and malignant neoplasm unsure where this malignancy is coming from. I believe that patient would benefit from hospitalization for further workup and pain control involving oncology and other specialty services as well as more advanced imaging to help find source of malignancy. Patient is very agreeable to this plan Departure - Departure Disposition: 66 [facility] DC/Xfer Clinical Impression: Osteolytic lesion due to metastasis, Pain crisis, Leukocytosis
[2023-11-14 16:38] LABS: ALBUMIN 3.7 g/dL (3.2-5.5); ALBUMIN/GLOBULIN RATIO 0.9 (1.0-2.2); BILIRUBIN,TOTAL 0.4 mg/dL (0.2-1.0); CREATININE 0.7 mg/dL (0.6-1.3); MAGNESIUM 1.8 mg/dL (1.7-2.3); POTASSIUM 4.4 mmol/L (3.5-4.5); TOTAL PROTEIN 7.6 g/dL (6.4-8.9)
[2023-11-14] MEDS: HYDROmorphone 0.5 MG/0.5 ML SYRINGE IVP STA ×3 (17:14→22:30)
[2023-11-14] MEDS: iohexoL-300 100 ML VIAL IVP ONE (18:06)
[2023-11-14] MEDS: SODIUM CHLORIDE 0.9% 1,000 ML IV ONE (18:17)
--- NOTE | 2023-11-14 18:28 | CT Report ---
PROCEDURE: Abdomen/Pelvis W INDICATIONS: worsening bilateral hip pain, neoplasm? CONTRAST: Omni 300 100ml TECHNIQUE: After the administration of intravenous contrast, a CT scan of the abdomen and pelvis was performed. Images were recorded and evaluated at appropriate window settings. Reformats: coronal and sagittal. F or radiation dose reduction, the following was used: automated exposure control, adjustment of mA and /or kV according to patient size. COMPARISON: 11/04/2023. FINDINGS: Image quality: Diagnostic. Lower chest: Loculated pleural effusion and left anterior lung base, please correlate with CT of ches t findings on the same day.. Liver: Subtle hypodensity is again seen in right hepatic dome measures approximately 2 x 0.9 x 0.8 cm on the current study series 2 image 27. Gallbladder and biliary tree: No radiopaque stones or wall thickening. No biliary dilation. Spleen: No splenomegaly. Pancreas: No pancreatic ductal dilation. Adrenals: No adrenal nodule. Kidneys and ureters: No hydronephrosis. Simple appearing small left renal cortical cyst is again seen unchanged from prior study. No renal cystic lesion which requires follow up. No solid mass. Stomach, bowel and peritoneum: There is no bowel obstruction. Significant fecal stasis in the colon i s seen extending to the level of proximal descending colon and splenic flexure. No area of abnormal b owel wall thickening. No abscess collection. No free fluid of free air. Lymph nodes: No central or retroperitoneal adenopathy. Vessels: No infrarenal aortic aneurysm. Significant atherosclerotic disease in infrarenal abdominal a tyron is again seen causing focal greater than 50% stenosis unchanged from recent study. PELVIS Reproductive organs: Unremarkable. Bladder: No abnormal wall thickening, accounting for underdistention. Pelvic lymph nodes: No pelvic adenopathy by size criteria. Bones: Lytic lesion involving right iliac wing is again seen unchanged from recent study. There is di sruption of anterior and posterior cortex adjacent to this lesion. No definite adjacent soft tissue m ass is noted. No additional aggressive appearing bony lesion is seen. Other: No significant ventral o r inguinal hernia. IMPRESSION: 1. Stable appearing lytic lesion involving right iliac wing without displaced pathologic fracture. Th ere is subtle disruption of anterior and posterior cortex of right iliac wing associated with this ma ss, early nondisplaced pathologic fracture cannot be excluded. No additional suspicious-appearing bon y lesion is seen. 2. Stable hypodensity involving right hepatic dome. This is of indeterminate nature. Consider outpati ent MRI or CT abdomen follow-up without with contrast. 3. Significant fecal stasis throughout the ascending colon and transverse colon extending to the level of proximal descending colon/splenic flexure. No abnormal bowel wall thickening. No bowel obstruction . No free fluid of free air. Reviewed by: Magdiel Tolentino MD on 11/14/2023 6:26 PM PDT Approved by: Magdiel Tolentino MD on 11/14/2023 6:26 PM PDT Station ID: [id number]
--- NOTE | 2023-11-14 18:38 | CT Report ---
PROCEDURE: Chest W INDICATIONS: neoplasm? CONTRAST: Omni 300 100ml TECHNIQUE: After the administration of intravenous contrast, a CT scan of the chest was performed. Images were recorded and evaluated at appropriate window settings. Reformats: axial MIP of the chest, coronal and sagittal. For radiation dose reduction, the following was used: automated exposure control, adjustme nt of mA and/or kV according to patient size. COMPARISON: CT of chest dated 11/04/2023. FINDINGS: Image quality: Diagnostic. Chest wall and lower neck: No thyroid nodule which requires sonographic follow up. No axillary or sup raclavicular adenopathy by size. Lungs and pleura: There is interval complete resolution of previously noted left-sided pleural effusi on. Persistent ovoid apparently necrotic mass is again seen adjacent to anterior pleural of left uppe r lobe now measures up to 7.7 x 4 cm in size series 2 image 68 compared to 7.8 x 4 cm 11/04/2023 study . There is also a slightly lobulated necrotic nodule adjacent to lateral pleura of left upper lobe me asures 2.6 x 1.3 cm in size series 2 image 42, unchanged from prior study and is better delineated du e to decreased amount of pleural effusion. 6 mm solid nodule is noted in right upper lobe series 4 im age 30. 7 mm Ill-defined spiculated nodule is seen in anterior medial aspect of right upper lobe seri es 4 image 39. Dependent atelectasis in posterior aspect of bilateral lung melendez are seen. No pneumo thorax. Mediastinum: Heart size is normal. No pericardial effusion. No large vessel abnormality. Mildly enlar ged mediastinal and hilar lymph nodes are seen measures up to 1.2 cm in right hilar region series 2 i mage 49. Bones: No aggressive osseous abnormality. Upper Abdomen: Please correlate with CT of abdomen and pelvis findings.. IMPRESSION: 1. Interval complete resolution of previously noted left pleural effusion. Bibasilar atelectasis. 2. Pleural-based necrotic appearing lesions involving anterior and lateral periphery of left upper lo be as described above concerning for pulmonary malignancy. 6 mm solid nodule is seen in right upper l obe. 7 mm spiculated nodule is seen in anterior medial aspect of right upper lobe. Finding may repres ent metastatic disease. 3. Mildly enlarged mediastinal and right hilar lymph nodes concerning for metastatic disease versus r eactive inflammatory changes. Reviewed by: Magdiel Tolentino MD on 11/14/2023 6:36 PM PDT Approved by: Magdiel Tolentino MD on 11/14/2023 6:36 PM PDT Station ID: [id number]
[2023-11-14] MEDS: HYDROmorphone 2 MG TABLET PO STA (19:54)
[2023-11-14] MEDS: ACETAMINOPHEN 325 MG TABLET PO STA (20:44)
[2023-11-14] MEDS: KETOROLAC 30 MG/ML VIAL IVP STA (20:44)
[2023-11-14] MEDS ORDERED: HYDROmorphone 1 MG/ML CARPUJECT ONE (20:49)
[2023-11-14] MEDS: HYDROmorphone 1 MG/ML CARPUJECT IVP STA (20:57)
[2023-11-14] MEDS: HYDROmorphone 2 MG/ML VIAL IVP STA (21:34)
[2023-11-14] MEDS ORDERED: HYDROmorphone 0.5 MG/0.5 ML SYRINGE IVP PRN (21:49)
--- NOTE | 2023-11-14 22:24 | HISTORY & PHYSICAL EXAMINATION ---
Chief Complaint - Chief Complaint Chief Complaint: hip pain History of Present Illness - History Obtained From History obtained from: Patient Exam Limitations: No limitations - History of Present Illness HPI Comment/Other: Patient presented to the ED for evaluation of intractable bilateral hip pain, generalized weakness and fatigue. symptoms have progressively worsened for the past 2 months. she was recently admitted and treated for pneumonia and required thoracentesis for large pleural effusion. In the ED patient underwent further evaluation of her hip adn was found to have lytic leison of her bilateral hip. This was concerning for metastatic disease. History - Past Medical History Musculoskeletal: reports: Fibromyalgia, Chronic back pain MRSA Hx?: No Other Past Medical History: Chronic regional pain syndrome - POLST Patient has POLST: No Meds/Allgy - Home Medications Home Medications: Ambulatory Orders Medication Instructions Recorded Confirmed estradioL [Estradiol] 4 mg PO DAILY 10/30/23 11/14/23 Acetaminophen [Tylenol] 500 mg PO Q4-6H PRN 11/14/23 11/14/23 Diclofenac Sodium 1% Gel [Voltaren 1 applic TOP PRN PRN 11/14/23 11/14/23 Gel] Nortriptyline [Pamelor] 10 mg PO HS 11/14/23 11/14/23 Ondansetron HCl 4 mg PO PRN PRN 11/14/23 11/14/23 oxyCODONE [Roxicodone] 1 tab PO Q4-6H PRN 11/14/23 11/14/23 - Allergies Allergies/Adverse Reactions: Allergies Allergy/AdvReac Type Severity Reaction Status Date / Time adhesive tape Allergy Rash Verified 11/14/23 15:44 Bleach (Sodium Hypochlorite) Allergy Rash Verified 11/14/23 15:44 metoclopramide [From Reglan] Allergy Unknown Verified 11/14/23 15:44 morphine Allergy Emesis Verified 11/14/23 15:44 prochlorperazine Allergy Emesis Verified 11/14/23 15:44 [From Compazine] hydromorphone [From Dilaudid] AdvReac Emesis Verified 11/14/23 15:44 tramadol AdvReac Emesis Verified 11/14/23 15:44 Exam - Vital Signs Vital Signs: Vital Signs x48h Temp Pulse Resp BP Pulse Ox 11/14/23 21:50 68 16 120/80 100 11/14/23 19:14 17 11/14/23 18:22 68 16 113/78 97 11/14/23 17:00 65 22 123/100 H 99 11/14/23 16:11 17 11/14/23 15:36 36.1 C L 70 16 118/69 100 - Physical Exam General Appearance: positive: No acute distress Eyes Bilateral: positive: PERRL Cardiovascular: positive: Regular rate & rhythm Peripheral Pulses: positive: 2+ Back: positive: Other (lumbar tenderness.) Extremities: positive: No pedal edema, Joint swelling, Other (ROM restricted in the setting of pain) Neurologic/Psychiatric: positive: Oriented x3, Mood/affect nml Conclusion/Plan - Problem List (1) Hip pain, bilateral Conclusion/Plan: -secondary to metastatic lesions. R >L . -will continue with oral Tylenol 650, oxy IR 10mg q6h. IV dilaudid 2mg q4h for breakthrough pain. -continuous monitoring telemetry and pulse oximetry as needed. - Lab Results Fish Bones: 11/14/23 16:17 11/14/23 16:17 - Diagnostic Imaging Results Diagnostic Imaging Results: positive: See rad report
[2023-11-14] MEDS: HEPARIN 5,000 UNIT/ML VIAL SUBQ SCH (23:24)
[2023-11-14] MEDS: ONDANSETRON 4 MG/2 ML VIAL IVP PRN (23:26)
[2023-11-14] MEDS: SODIUM CHLORIDE FLUSH 0.9% 10 ML SYRINGE IVP SCH (23:27)
[2023-11-14] MEDS: SODIUM CHLORIDE 0.9% 1,000 ML IV SCH (23:31)
[2023-11-14] MEDS: oxyCODONE 5 MG TABLET PO PRN (23:37)
[2023-11-15] MEDS: ACETAMINOPHEN 325 MG TABLET PO PRN (05:09)
[2023-11-15] MEDS ORDERED: DICLOFENAC SODIUM 1% GEL 50 GM TUBE TOP PRN (08:02)
[2023-11-15] MEDS: estradioL 1 MG TABLET PO SCH (08:59)
[2023-11-15] MEDS: HYDROmorphone 0.5 MG/0.5 ML SYRINGE IVP PRN ×2 (09:24→14:18)
--- NOTE | 2023-11-15 10:34 | PHARMACY PROGRESS NOTE ---
- Best Possible Medication History Admit Date and Time: 11/14/23 2147 Processed by: Pharmacy Medications reviewed in ED?: No Medication History completed: Yes Patient Interview: Completed Secondary Source(s): Physician records, Insurance records As the person ultimately responsible for medication therapy, providers are able to order a medication from an existing home medication list in [facility] via the "Reconcile Routine" prior to Confirmation of that medication by operations support specialist. Such practice is discouraged except when the physician, in their clinical judgment, deems that a medical need exists for a medication without regard to previous use.
[2023-11-15] MEDS ORDERED: PROCHLORPERAZINE 10 MG/2 ML VIAL IVP PRN (11:01)
[2023-11-15] MEDS ORDERED: METOCLOPRAMIDE 10 MG/2 ML VIAL IVP PRN (11:23)
[2023-11-15] MEDS: ACETAMINOPHEN 500 MG TABLET PO SCH (11:35)
--- NOTE | 2023-11-15 12:54 | PROVIDER PROGRESS NOTE ---
Assessment/Plan - Problem List (1) Osteolytic lesion due to metastasis Assessment/Plan: --Lytic lesion on right Iliac wing. --Pain control ordered. She does use oxycodone at home. Will add dilaudid for breakthrough pain while she is in the hospital. --Has some stairs at home. PT/OT ordered. --CT chest showing concern for pulmonary malignancy. --Prior history of lymphoma and Moh's surgery for skin cancer. --Has a PET scan at [facility] scheduled. (2) Anemia Qualifiers: Anemia type: unspecified type Qualified Code(s): D64.9 - Anemia, unspecified (3) Pleural effusion Assessment/Plan: --CT chest showing evidence of necrotic pulmonary nodules. Concern for malignancy. - Current Meds Current Meds: Current Medications Generic Name Dose Route Start Last Admin Trade Name Freq PRN Reason Stop Dose Admin Acetaminophen 650 mg 11/14/23 21:49 11/15/23 05:09 Acetaminophen 325 Mg Tablet PO 650 mg Q4HR PRN Administration Pain 1 to 4, or Fever Acetaminophen 1,000 mg 11/15/23 11:00 11/15/23 11:35 Acetaminophen 500 Mg Tablet PO Not Given Q8H HOLLY Estradiol 4 mg 11/15/23 09:00 11/15/23 08:59 Estradiol 1 Mg Tablet PO 4 mg DAILY HOLLY Administration Heparin Sodium (Porcine) 5,000 unit 11/14/23 22:00 11/15/23 09:02 Heparin 5,000 Unit/Ml Vial SUBQ 5,000 unit BID HOLLY Administration Hydromorphone HCl 1 mg 11/15/23 08:20 11/15/23 09:24 Hydromorphone 0.5 Mg/0.5 Ml Syringe IVP 1 mg Q2H PRN Administration Severe Pain (Level 7-10) Sodium Chloride 1,000 mls @ 75 mls/hr 11/14/23 22:00 11/15/23 12:38 Normal Saline 0.9% IV 75 mls/hr .[id number] HOLLY Administration Ondansetron HCl 4 mg 11/14/23 21:49 11/15/23 09:24 Ondansetron 4 Mg/2 Ml Vial IVP 4 mg Q6HR PRN Administration Nausea / Vomiting Oxycodone HCl 10 mg 11/14/23 21:49 11/15/23 07:44 Oxycodone 5 Mg Tablet PO 10 mg Q6HR PRN Administration Pain 5 to 7 Sodium Chloride 10 ml 11/15/23 01:00 11/15/23 09:00 Sodium Chloride Flush 0.9% 10 Ml Syringe IVP 10 ml 0100,0900,1700 [facility] Administration - Lab Result Fish Bone Diagrams: 11/14/23 16:17 11/14/23 16:17 - Additional Planning My Orders: My Active Orders 11/15/23 Evaluate and Treat OT [OT] Routine Evaluate and Treat PT [PT] Routine 11/15/23 08:02 Diclofenac Sodium 1% Gel [Voltaren Gel] 4 gm TOP QID PRN 11/15/23 08:20 HYDROmorphone 0.5MG SYRINGE [Dilaudid 0.5MG Syringe] 1 mg IVP Q2H PRN 11/15/23 09:00 estradioL [Estrace] 4 mg PO DAILY 11/15/23 11:00 Acetaminophen [Tylenol] 1,000 mg PO Q8H 11/15/23 Lunch Regular Diet [DIET] 11/15/23 11:23 Metoclopramide Inj [Reglan Inj] 5 mg IVP Q6HR PRN 11/15/23 21:00 Patient Own Med 1 each PO HS Subjective - Subjective Patient Reports: Feeling Better Objective Vital Signs: Vital Signs - 24 hr 11/14/23 11/14/23 11/14/23 15:36 16:11 17:00 Temperature 36.1 C L Heart Rate 70 65 Heart Rate [ Brachial] Heart Rate [ Monitoring electrodes] Heart Rate [ Radial] Respiratory 16 17 22 Rate Blood Pressure 118/69 123/100 H Blood Pressure [Left Brachial artery] O2 Saturation 100 99 If not protocol : Oxygen Flow, liters/minute 11/14/23 11/14/23 11/14/23 18:22 19:14 21:50 Temperature Heart Rate 68 68 Heart Rate [ Brachial] Heart Rate [ Monitoring electrodes] Heart Rate [ Radial] Respiratory 16 17 16 Rate Blood Pressure 113/78 120/80 Blood Pressure [Left Brachial artery] O2 Saturation 97 100 If not protocol : Oxygen Flow, liters/minute 11/14/23 11/15/23 11/15/23 23:36 02:37 05:12 Temperature 36.7 C 36.3 C L Heart Rate Heart Rate [ Brachial] Heart Rate [ 56 L Monitoring electrodes] Heart Rate [ 56 L 58 L Radial] Respiratory 16 16 Rate Blood Pressure Blood Pressure 112/57 L 120/71 [Left Brachial artery] O2 Saturation 96 94 If not protocol 97 : Oxygen Flow, liters/minute 11/15/23 11/15/23 07:35 11:05 Temperature 36.9 C 36.1 C L Heart Rate Heart Rate [ 63 62 Brachial] Heart Rate [ Monitoring electrodes] Heart Rate [ Radial] Respiratory 18 20 Rate Blood Pressure Blood Pressure 97/60 144/80 H [Left Brachial artery] O2 Saturation 95 99 If not protocol : Oxygen Flow, liters/minute Oxygen O2 Source Room air I&O (Last 24 Hrs): Intake and Output Totals x24h 11/13/23 11/14/23 11/15/23 23:59 23:59 23:59 Intake Total 1000 1935.75 Output Total 400 1200 Balance 600 735.75 General: Alert, Oriented x3 Neuro: Alert Cardiovascular: Regular rate, Normal S1, Normal S2 Respiratory: Chest non-tender, No respiratory distress, Breath sounds nml - Results Results: Laboratory Results WBC 13.8 x10^3/uL (4.8-10.8) H 11/14/23 16:17 RBC 3.61 10^6/uL (4.20-5.40) L 11/14/23 16:17 Hgb 10.4 g/dL (12.0-16.0) L 11/14/23 16:17 Hct 32.5 % (37.0-47.0) L 11/14/23 16:17 MCV 90.0 fL (81.0-99.0) 11/14/23 16:17 MCH 28.8 pg (27.0-31.0) 11/14/23 16:17 MCHC 32.0 g/dL (32.0-36.0) 11/14/23 16:17 RDW 12.4 % (12.0-15.0) 11/14/23 16:17 Plt Count 417 10^3/uL (130-450) 11/14/23 16:17 MPV 9.3 fL (7.9-10.8) 11/14/23 16:17 Neut # (Auto) 10.1 10^3/uL (1.5-6.6) H 11/14/23 16:17 Lymph # (Auto) 1.8 10^3/uL (1.5-3.5) 11/14/23 16:17 [place] # (Auto) 0.8 10^3/uL (0.0-1.0) 11/14/23 16:17 Eos # (Auto) 0.8 10^3/uL (0.0-0.7) H 11/14/23 16:17 Baso # (Auto) 0.1 10^3/uL (0.0-0.1) 11/14/23 16:17 Absolute Nucleated RBC 0.00 x10^3/uL 11/14/23 16:17 Nucleated RBC % 0.0 /100WBC 11/14/23 16:17 Sodium 135 mmol/L (135-145) 11/14/23 16:17 Potassium 4.4 mmol/L (3.5-4.5) 11/14/23 16:17 Chloride 99 mmol/L (101-111) L 11/14/23 16:17 Carbon Dioxide 29 mmol/L (21-32) 11/14/23 16:17 Anion Gap 7.0 (6-13) 11/14/23 16:17 BUN 12 mg/dL (6-20) 11/14/23 16:17 Creatinine 0.7 mg/dL (0.6-1.3) 11/14/23 16:17 Estimated GFR (MDRD) 87 (>89) L 11/14/23 16:17 Glucose 98 mg/dL (74-104) 11/14/23 16:17 Calcium 10.0 mg/dL (8.5-10.3) 11/14/23 16:17 Magnesium 1.8 mg/dL (1.7-2.3) 11/14/23 16:17 Total Bilirubin 0.4 mg/dL (0.2-1.0) 11/14/23 16:17 AST 19 IU/L (10-42) 11/14/23 16:17 ALT 21 IU/L (10-60) 11/14/23 16:17 Alkaline Phosphatase 145 IU/L (42-121) H 11/14/23 16:17 Total Protein 7.6 g/dL (6.4-8.9) 11/14/23 16:17 Albumin 3.7 g/dL (3.2-5.5) 11/14/23 16:17 Globulin 3.9 g/dL (2.1-4.2) 11/14/23 16:17 Albumin/Globulin Ratio 0.9 (1.0-2.2) L 11/14/23 16:17
[2023-11-15] MEDS: polyethylene glycoL 3350 17 GM PACKET PO SCH (14:07)
[2023-11-15] MEDS: KETOROLAC 30 MG/ML VIAL IVP PRN (18:33)
[2023-11-15] MEDS: NORTRIPTYLINE 10 MG PO SCH (22:02)
[2023-11-16] MEDS: oxyCODONE ER 10 MG TABLET PO SCH (08:41)
--- NOTE | 2023-11-16 11:08 | PROVIDER PROGRESS NOTE ---
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 --Pain control ordered. She does use oxycodone at home. Will add dilaudid for breakthrough pain while she is in the hospital. Have also added oxycodone 10 mg BID. --Has some stairs at home. PT/OT ordered. --CT chest showing concern for pulmonary malignancy. --Prior history of lymphoma and Moh's surgery for skin cancer. --Has a PET scan at [facility] scheduled. (2) Anemia Qualifiers: Anemia type: unspecified type Qualified Code(s): D64.9 - Anemia, unspecified (3) Pleural effusion Assessment/Plan: --CT chest showing evidence of necrotic pulmonary nodules. Concern for m alignancy. Dispo: Continues to be in significant pain. Will add additional long acting oxycodone today. (2) Anemia Qualifiers: Anemia type: unspecified type Qualified Code(s): D64.9 - Anemia, unspecified - Current Meds Current Meds: Current Medications Generic Name Dose Route Start Last Admin Trade Name Freq PRN Reason Stop Dose Admin Acetaminophen 1,000 mg 11/15/23 11:00 11/16/23 03:13 Acetaminophen 500 Mg Tablet PO 1,000 mg Q8H HOLLY Administration Estradiol 4 mg 11/15/23 09:00 11/16/23 08:41 Estradiol 1 Mg Tablet PO 4 mg DAILY HOLLY Administration Heparin Sodium (Porcine) 5,000 unit 11/14/23 22:00 11/16/23 08:49 Heparin 5,000 Unit/Ml Vial SUBQ 5,000 unit BID HOLLY Administration Hydromorphone HCl 0.5 mg 11/15/23 14:14 11/16/23 07:47 Hydromorphone 0.5 Mg/0.5 Ml Syringe IVP 0.5 mg Q2H PRN Administration Severe Pain (Level 7-10) Sodium Chloride 1,000 mls @ 75 mls/hr 11/14/23 22:00 11/16/23 00:02 Normal Saline 0.9% IV 75 mls/hr .[id number] HOLLY Administration Ketorolac Tromethamine 30 mg 11/14/23 22:42 11/16/23 09:49 Ketorolac 30 Mg/Ml Vial IVP 11/16/23 22:41 30 mg Q8HR PRN Administration Severe Pain (Level 7-10) Ondansetron HCl 4 mg 11/14/23 21:49 11/16/23 07:47 Ondansetron 4 Mg/2 Ml Vial IVP 4 mg Q6HR PRN Administration Nausea / Vomiting Oxycodone HCl 10 mg 11/14/23 21:49 11/16/23 10:17 Oxycodone 5 Mg Tablet PO 10 mg Q6HR PRN Administration Pain 5 to 7 Oxycodone HCl 10 mg 11/16/23 09:00 11/16/23 08:41 Oxycodone Er 10 Mg Tablet PO 10 mg BID HOLLY Administration Patient Own Med ( 1 each 11/15/23 21:00 11/15/23 22:02 Nortriptyline [ PO Not Given Pamelor] 10 Mg HS [facility] Capsule) Polyethylene Glycol 17 gm 11/15/23 13:00 11/16/23 08:41 Polyethylene Glycol 3350 17 Gm Packet PO 17 gm BID HOLLY Administration Sodium Chloride 10 ml 11/15/23 01:00 11/16/23 08:42 Sodium Chloride Flush 0.9% 10 Ml Syringe IVP Not Given 0100,0900,1700 HOLLY - Lab Result Fish Bone Diagrams: 11/14/23 16:17 11/14/23 16:17 - Additional Planning My Orders: My Active Orders 11/15/23 11:00 Acetaminophen [Tylenol] 1,000 mg PO Q8H 11/15/23 Lunch Regular Diet [DIET] 11/15/23 11:23 Metoclopramide Inj [Reglan Inj] 5 mg IVP Q6HR PRN 11/15/23 13:00 polyethylene glycoL 3350 [Miralax] 17 gm PO BID 11/15/23 14:14 HYDROmorphone 0.5MG SYRINGE [Dilaudid 0.5MG Syringe] 0.5 mg IVP Q2H PRN 11/15/23 21:00 Patient Own Med 1 each PO HS 11/16/23 09:00 oxyCODONE ER [OxyCONTIN] 10 mg PO BID Subjective - Subjective Patient Reports: Other (Severe pain.) Objective Vital Signs: Vital Signs - 24 hr 11/15/23 11/15/23 11/16/23 16:00 21:00 00:10 Temperature 36.5 C 36.5 C 36.6 C Heart Rate [ 67 87 Brachial] Heart Rate [ 60 Radial] Respiratory 12 16 18 Rate Blood Pressure 116/62 155/83 H 128/62 [Left Brachial artery] O2 Saturation 98 98 97 11/16/23 11/16/23 11/16/23 05:00 07:46 07:52 Temperature 36.6 C 37.2 C Heart Rate [ 71 75 Brachial] Heart Rate [ Radial] Respiratory 20 18 Rate Blood Pressure 124/78 138/78 H [Left Brachial artery] O2 Saturation 96 98 98 Oxygen O2 Source Room air I&O (Last 24 Hrs): Intake and Output Totals x24h 11/14/23 11/15/23 11/16/23 23:59 23:59 23:59 Intake Total 1000 2971.75 855 Output Total 400 2125 650 Balance 600 846.75 205 General: Moderate distress (Tearful) Cardiovascular: Regular rate, Normal S1, Normal S2 Respiratory: No respiratory distress, Breath sounds nml - Results Results: Laboratory Results WBC 13.8 x10^3/uL (4.8-10.8) H 11/14/23 16:17 RBC 3.61 10^6/uL (4.20-5.40) L 11/14/23 16:17 Hgb 10.4 g/dL (12.0-16.0) L 11/14/23 16:17 Hct 32.5 % (37.0-47.0) L 11/14/23 16:17 MCV 90.0 fL (81.0-99.0) 11/14/23 16:17 MCH 28.8 pg (27.0-31.0) 11/14/23 16:17 MCHC 32.0 g/dL (32.0-36.0) 11/14/23 16:17 RDW 12.4 % (12.0-15.0) 11/14/23 16:17 Plt Count 417 10^3/uL (130-450) 11/14/23 16:17 MPV 9.3 fL (7.9-10.8) 11/14/23 16:17 Neut # (Auto) 10.1 10^3/uL (1.5-6.6) H 11/14/23 16:17 Lymph # (Auto) 1.8 10^3/uL (1.5-3.5) 11/14/23 16:17 [place] # (Auto) 0.8 10^3/uL (0.0-1.0) 11/14/23 16:17 Eos # (Auto) 0.8 10^3/uL (0.0-0.7) H 11/14/23 16:17 Baso # (Auto) 0.1 10^3/uL (0.0-0.1) 11/14/23 16:17 Absolute Nucleated RBC 0.00 x10^3/uL 11/14/23 16:17 Nucleated RBC % 0.0 /100WBC 11/14/23 16:17 Sodium 135 mmol/L (135-145) 11/14/23 16:17 Potassium 4.4 mmol/L (3.5-4.5) 11/14/23 16:17 Chloride 99 mmol/L (101-111) L 11/14/23 16:17 Carbon Dioxide 29 mmol/L (21-32) 11/14/23 16:17 Anion Gap 7.0 (6-13) 11/14/23 16:17 BUN 12 mg/dL (6-20) 11/14/23 16:17 Creatinine 0.7 mg/dL (0.6-1.3) 11/14/23 16:17 Estimated GFR (MDRD) 87 (>89) L 11/14/23 16:17 Glucose 98 mg/dL (74-104) 11/14/23 16:17 Calcium 10.0 mg/dL (8.5-10.3) 11/14/23 16:17 Magnesium 1.8 mg/dL (1.7-2.3) 11/14/23 16:17 Total Bilirubin 0.4 mg/dL (0.2-1.0) 11/14/23 16:17 AST 19 IU/L (10-42) 11/14/23 16:17 ALT 21 IU/L (10-60) 11/14/23 16:17 Alkaline Phosphatase 145 IU/L (42-121) H 11/14/23 16:17 Total Protein 7.6 g/dL (6.4-8.9) 11/14/23 16:17 Albumin 3.7 g/dL (3.2-5.5) 11/14/23 16:17 Globulin 3.9 g/dL (2.1-4.2) 11/14/23 16:17 Albumin/Globulin Ratio 0.9 (1.0-2.2) L 11/14/23 16:17
[2023-11-16] MEDS ORDERED: MORPHINE 2 MG/ML CARPUJECT IVP PRN (14:02)
[2023-11-16] MEDS: fentaNYL 100 MCG/2 ML VIAL IVP PRN ×2 (17:15→19:30)
[2023-11-17 05:44] LABS: BASOPHILS # (AUTO) 0.1 10^3/uL (0.0-0.1); EOSINOPHILS # (AUTO) 0.9 10^3/uL (0.0-0.7); EOSINOPHILS % (AUTO) 7.8 %; HGB - HEMOGLOBIN 8.9 g/dL (12.0-16.0); LYMPHOCYTES # (AUTO) 2.1 10^3/uL (1.5-3.5); LYMPHOCYTES % (AUTO) 18.2 %; MEAN CORPUSCULAR HEMOGLOBIN 28.5 pg (27.0-31.0); MEAN CORPUSCULAR HGB CONC 31.8 g/dL (32.0-36.0); MEAN CORPUSCULAR VOLUME 89.7 fL (81.0-99.0); MEAN PLATELET VOLUME 9.4 fL (7.9-10.8); MONOCYTES # (AUTO) 0.8 10^3/uL (0.0-1.0); MONOCYTES % (AUTO) 7.2 %; NEUTROPHILS # (AUTO) 7.4 10^3/uL (1.5-6.6); PLT - PLATELET COUNT 358 10^3/uL (130-450); RED BLOOD COUNT 3.12 10^6/uL (4.20-5.40); RED CELL DISTRIBUTION WIDTH 12.3 % (12.0-15.0); WHITE BLOOD COUNT 11.3 x10^3/uL (4.8-10.8)
[2023-11-17 05:59] LABS: CALCIUM 9.1 mg/dL (8.5-10.3); CREATININE 0.6 mg/dL (0.6-1.3); POTASSIUM 3.7 mmol/L (3.5-4.5)
[2023-11-17] MEDS: oxyCODONE ER 10 MG TABLET PO SCH (09:40)
[2023-11-17] MEDS ORDERED: traMADol 50 MG TABLET PO PRN (11:08)
--- NOTE | 2023-11-17 12:34 | PROVIDER PROGRESS NOTE ---
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 --Increased Oxycodone BID to 20 mg. She appears to tolerate Fentanyl over other narcotics --Has some stairs at home. PT/OT ordered. --CT chest showing concern for pulmonary malignancy. --Prior history of lymphoma and Moh's surgery for skin cancer. --Has a PET scan at [facility] scheduled. (2) Anemia Qualifiers: Anemia type: unspecified type Qualified Code(s): D64.9 - Anemia, unspecified --Iron panel in AM. --Continue home vitamin supplementation. --No evidence of bleeding. (3) Pleural effusion Assessment/Plan: --CT chest showing evidence of necrotic pulmonary nodules. Concern for malignancy. Dispo: Continues to be in significant pain. Continue with PO and IV pain co ntrol. Our goal is to discharge on an oral regimen. (2) Anemia Qualifiers: Anemia type: unspecified type Qualified Code(s): D64.9 - Anemia, unspecified - Current Meds Current Meds: Current Medications Generic Name Dose Route Start Last Admin Trade Name Freq PRN Reason Stop Dose Admin Acetaminophen 1,000 mg 11/15/23 11:00 11/17/23 10:33 Acetaminophen 500 Mg Tablet PO 1,000 mg Q8H HOLLY Administration Estradiol 4 mg 11/15/23 09:00 11/17/23 10:16 Estradiol 1 Mg Tablet PO 4 mg DAILY HOLLY Administration Fentanyl 50 mcg 11/16/23 18:21 11/17/23 09:37 Fentanyl 100 Mcg/2 Ml Vial IVP 50 mcg Q1H PRN Administration Severe Pain (Level 7-10) Heparin Sodium (Porcine) 5,000 unit 11/14/23 22:00 11/17/23 10:27 Heparin 5,000 Unit/Ml Vial SUBQ 5,000 unit BID HOLLY Administration Hydromorphone HCl 0.5 mg 11/15/23 14:14 11/17/23 03:32 Hydromorphone 0.5 Mg/0.5 Ml Syringe IVP 0.5 mg Q2H PRN Administration Severe Pain (Level 7-10) Ondansetron HCl 4 mg 11/14/23 21:49 11/17/23 09:37 Ondansetron 4 Mg/2 Ml Vial IVP 4 mg Q6HR PRN Administration Nausea / Vomiting Oxycodone HCl 10 mg 11/14/23 21:49 11/16/23 18:09 Oxycodone 5 Mg Tablet PO 10 mg Q6HR PRN Administration Pain 5 to 7 Oxycodone HCl 20 mg 11/17/23 09:00 11/17/23 09:40 Oxycodone Er 10 Mg Tablet PO 20 mg BID HOLLY Administration Patient Own Med ( 1 each 11/15/23 21:00 11/16/23 20:51 Nortriptyline [ PO Not Given Pamelor] 10 Mg HS HOLLY Capsule) Polyethylene Glycol 17 gm 11/15/23 13:00 11/17/23 10:17 Polyethylene Glycol 3350 17 Gm Packet PO 17 gm BID HOLLY Administration Sodium Chloride 10 ml 11/15/23 01:00 11/17/23 10:17 Sodium Chloride Flush 0.9% 10 Ml Syringe IVP 10 ml 0100,0900,1700 HOLLY Administration - Lab Result Fish Bone Diagrams: 11/17/23 05:22 11/17/23 05:22 - Additional Planning My Orders: My Active Orders 11/16/23 18:21 fentaNYL 50 mcg IVP Q1H PRN 11/17/23 05:22 VITAMIN D 25-HYDROXY [REFLAB] DAILY 11/17/23 09:00 oxyCODONE ER [OxyCONTIN] 20 mg PO BID 11/17/23 11:08 traMADol [Ultram] 50 mg PO Q4HR PRN 11/17/23 12:30 Magnesium Citrate [Magnesium Citrate] 100 mg PO DAILY PRN 11/18/23 09:00 FERRITIN [CHEM] DAILY IRON TIBC PANEL [CHEM] DAILY Cholecalciferol (Vitamin D3) [Is-D-10,000] 250 mcg PO DAILY Cyanocobalamin [Vitamin B-12] 500 mcg PO UD Subjective - Subjective Patient Reports: Other (Tearful and in pain. States it feels like she's getting a bone marrow biopsy.) Objective Vital Signs: Vital Signs - 24 hr 11/16/23 11/16/23 11/16/23 13:00 15:42 20:54 Temperature 36.5 C 36.9 C 37.1 C Heart Rate [ 62 65 66 Brachial] Respiratory 18 16 16 Rate Blood Pressure 139/76 H 123/66 139/70 H [Left Brachial artery] O2 Saturation 97 96 98 11/16/23 11/16/23 11/17/23 22:00 23:58 00:16 Temperature 36.6 C Heart Rate [ 61 64 Brachial] Respiratory 18 17 Rate Blood Pressure 132/74 H 135/71 H [Left Brachial artery] O2 Saturation 96 97 95 11/17/23 11/17/23 05:00 08:09 Temperature 36.6 C 37.0 C Heart Rate [ 57 L 59 L Brachial] Respiratory 16 18 Rate Blood Pressure 123/71 126/76 [Left Brachial artery] O2 Saturation 97 98 Oxygen O2 Source Room air I&O (Last 24 Hrs): Intake and Output Totals x24h 11/15/23 11/16/23 11/17/23 23:59 23:59 23:59 Intake Total 2971.75 2175 1100 Output Total 2125 650 Balance 846.75 1525 1100 General: Severe distress Neuro: Alert, CN 2-12 Grossly Intact, Oriented Times 3 Cardiovascular: Regular rate, Normal S1, Normal S2, No murmurs Respiratory: Chest non-tender, No respiratory distress, Breath sounds nml - Results Results: Laboratory Results WBC 11.3 x10^3/uL (4.8-10.8) H 11/17/23 05:22 RBC 3.12 10^6/uL (4.20-5.40) L 11/17/23 05:22 Hgb 8.9 g/dL (12.0-16.0) L 11/17/23 05:22 Hct 28.0 % (37.0-47.0) L 11/17/23 05:22 MCV 89.7 fL (81.0-99.0) 11/17/23 05:22 MCH 28.5 pg (27.0-31.0) 11/17/23 05:22 MCHC 31.8 g/dL (32.0-36.0) L 11/17/23 05:22 RDW 12.3 % (12.0-15.0) 11/17/23 05:22 Plt Count 358 10^3/uL (130-450) 11/17/23 05:22 MPV 9.4 fL (7.9-10.8) 11/17/23 05:22 Neut # (Auto) 7.4 10^3/uL (1.5-6.6) H 11/17/23 05:22 Lymph # (Auto) 2.1 10^3/uL (1.5-3.5) 11/17/23 05:22 Carbon # (Auto) 0.8 10^3/uL (0.0-1.0) 11/17/23 05:22 Eos # (Auto) 0.9 10^3/uL (0.0-0.7) H 11/17/23 05:22 Baso # (Auto) 0.1 10^3/uL (0.0-0.1) 11/17/23 05:22 Absolute Nucleated RBC 0.00 x10^3/uL 11/17/23 05:22 Nucleated RBC % 0.0 /100WBC 11/17/23 05:22 Sodium 136 mmol/L (135-145) 11/17/23 05:22 Potassium 3.7 mmol/L (3.5-4.5) 11/17/23 05:22 Chloride 103 mmol/L (101-111) 11/17/23 05:22 Carbon Dioxide 27 mmol/L (21-32) 11/17/23 05:22 Anion Gap 6.0 (6-13) 11/17/23 05:22 BUN 9 mg/dL (6-20) 11/17/23 05:22 Creatinine 0.6 mg/dL (0.6-1.3) 11/17/23 05:22 Estimated GFR (MDRD) 104 (>89) 11/17/23 05:22 Glucose 81 mg/dL (74-104) 11/17/23 05:22 Calcium 9.1 mg/dL (8.5-10.3) 11/17/23 05:22 Magnesium 1.8 mg/dL (1.7-2.3) 11/14/23 16:17 Total Bilirubin 0.4 mg/dL (0.2-1.0) 11/14/23 16:17 AST 19 IU/L (10-42) 11/14/23 16:17 ALT 21 IU/L (10-60) 11/14/23 16:17 Alkaline Phosphatase 145 IU/L (42-121) H 11/14/23 16:17 Total Protein 7.6 g/dL (6.4-8.9) 11/14/23 16:17 Albumin 3.7 g/dL (3.2-5.5) 11/14/23 16:17 Globulin 3.9 g/dL (2.1-4.2) 11/14/23 16:17 Albumin/Globulin Ratio 0.9 (1.0-2.2) L 11/14/23 16:17
[2023-11-17] MEDS ORDERED: MAGNESIUM OXIDE 400 MG TABLET PO PRN (12:41)
[2023-11-17] MEDS: KETOROLAC 30 MG/ML VIAL IVP PRN (13:15)
[2023-11-17] MEDS: SODIUM CHLORIDE FLUSH 0.9% 10 ML SYRINGE IVP PRN (23:05)
[2023-11-18] MEDS: CHOLECALCIFEROL 5,000 UNIT CAPSULE PO SCH (09:26)
[2023-11-18] MEDS: SENNA 8.6 MG TABLET PO SCH (09:26)
[2023-11-18] MEDS: DOCUSATE SODIUM 250 MG CAPSULE PO SCH (09:27)
[2023-11-18] MEDS: ACETAMINOPHEN 500 MG TABLET PO SCH (09:27)
[2023-11-18] MEDS: oxyCODONE ER 10 MG TABLET PO ONE (10:07)
[2023-11-18 11:07] LABS: FERRITIN 172.8 ng/mL (11.0-306.8)
--- NOTE | 2023-11-18 11:59 | PROVIDER PROGRESS NOTE ---
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 --Increased Oxycodone BID to 30 mg. She appears to tolerate Fentanyl over other narcotics --Has some stairs at home. PT/OT ordered. --CT chest showing concern for pulmonary malignancy. --Prior history of lymphoma and Moh's surgery for skin cancer. --Has a PET scan at [facility] scheduled. (2) Anemia Qualifiers: Anemia type: unspecified type Qualified Code(s): D64.9 - Anemia, unspecified --Iron panel in AM. --Continue home vitamin supplementation. --No evidence of bleeding. (3) Pleural effusion Assessment/Plan: --CT chest showing evidence of necrotic pulmonary nodules. Concern for malignancy. Dispo: Continues to be in significant pain. Continue with PO and IV pain co ntrol. Our goal is to discharge on an oral regimen. Will consult palliative care tomorrow given difficult to controls symptoms and concern for malignancy. (2) Anemia Qualifiers: Anemia type: unspecified type Qualified Code(s): D64.9 - Anemia, unspecified - Current Meds Current Meds: Current Medications Generic Name Dose Route Start Last Admin Trade Name Freq PRN Reason Stop Dose Admin Acetaminophen 500 mg 11/18/23 09:00 11/18/23 09:27 Acetaminophen 500 Mg Tablet PO 500 mg Q4H HOLLY Administration Cholecalciferol 10,000 unit 11/18/23 09:00 11/18/23 09:26 Cholecalciferol 5,000 Unit Capsule PO 10,000 unit DAILY HOLLY Administration Docusate Sodium 250 - 500 mg 11/18/23 09:00 11/18/23 09:27 Docusate Sodium 250 Mg Capsule PO 250 mg DAILY HOLLY Administration Estradiol 4 mg 11/15/23 09:00 11/18/23 09:26 Estradiol 1 Mg Tablet PO 4 mg DAILY HOLLY Administration Fentanyl 50 mcg 11/16/23 18:21 11/18/23 09:19 Fentanyl 100 Mcg/2 Ml Vial IVP 50 mcg Q1H PRN Administration Severe Pain (Level 7-10) Heparin Sodium (Porcine) 5,000 unit 11/14/23 22:00 11/18/23 10:12 Heparin 5,000 Unit/Ml Vial SUBQ 5,000 unit BID HOLLY Administration Hydromorphone HCl 0.5 mg 11/15/23 14:14 11/18/23 07:55 Hydromorphone 0.5 Mg/0.5 Ml Syringe IVP 0.5 mg Q2H PRN Administration Severe Pain (Level 7-10) Ketorolac Tromethamine 30 mg 11/17/23 12:44 11/17/23 13:15 Ketorolac 30 Mg/Ml Vial IVP 11/20/23 12:43 30 mg Q6HR PRN Administration Severe Pain (Level 7-10) Ondansetron HCl 4 mg 11/14/23 21:49 11/18/23 11:23 Ondansetron 4 Mg/2 Ml Vial IVP 4 mg Q6HR PRN Administration Nausea / Vomiting Oxycodone HCl 10 mg 11/14/23 21:49 11/18/23 01:21 Oxycodone 5 Mg Tablet PO 10 mg Q6HR PRN Administration Pain 5 to 7 Patient Own Med ( 1 each 11/15/23 21:00 11/17/23 20:49 Nortriptyline [ PO Not Given Pamelor] 10 Mg HS HOLLY Capsule) Polyethylene Glycol 17 gm 11/15/23 13:00 11/18/23 10:07 Polyethylene Glycol 3350 17 Gm Packet PO 17 gm BID HOLLY Administration Senna 8.6 - 17.2 mg 11/18/23 09:00 11/18/23 09:26 Senna 8.6 Mg Tablet PO 8.6 mg DAILY HOLLY Administration Sodium Chloride 10 ml 11/14/23 21:49 11/17/23 23:05 Sodium Chloride Flush 0.9% 10 Ml Syringe IVP 10 ml PRN PRN Administration NEEDED PER PROVIDER ORDERS Sodium Chloride 10 ml 11/15/23 01:00 11/18/23 10:08 Sodium Chloride Flush 0.9% 10 Ml Syringe IVP 10 ml 0100,0900,1700 HOLLY Administration - Lab Result Fish Bone Diagrams: 11/17/23 05:22 11/17/23 05:22 - Additional Planning My Orders: My Active Orders 11/17/23 12:41 Magnesium Oxide [Mag Ox] 400 mg PO DAILY PRN 11/17/23 12:44 Ketorolac Inj (30Mg) [Toradol Inj (30Mg)] 30 mg IVP Q6HR PRN 11/18/23 09:00 Acetaminophen [Tylenol] 500 mg PO Q4H Cholecalciferol [Vitamin D3] 10,000 unit PO DAILY Docusate Sodium 250Mg Capsule [Colace 250Mg Capsule] 250 - 500 mg PO DAILY Senna [Senokot] 8.6 - 17.2 mg PO DAILY 11/18/23 21:00 oxyCODONE ER [OxyCONTIN] 30 mg PO BID 11/19/23 09:00 Cyanocobalamin [Vitamin B-12] 500 mcg PO MoWeFr Subjective - Subjective Patient Reports: Other (Tearful and in pain.) Objective Vital Signs: Vital Signs - 24 hr 11/17/23 11/17/23 11/17/23 13:00 16:00 16:27 Temperature 36.6 C 36.7 C Heart Rate [ 68 55 L Brachial] Respiratory 18 20 Rate Blood Pressure 130/81 H [Left Brachial artery] Blood Pressure 128/71 [Right Brachial artery] O2 Saturation 97 98 98 11/17/23 11/17/23 11/18/23 21:00 23:45 05:00 Temperature 37.0 C 36.8 C 36.4 C L Heart Rate [ 61 63 63 Brachial] Respiratory 20 20 18 Rate Blood Pressure 130/78 [Left Brachial artery] Blood Pressure 133/70 H 125/81 H [Right Brachial artery] O2 Saturation 98 96 97 11/18/23 09:00 Temperature 36.7 C Heart Rate [ 61 Brachial] Respiratory 18 Rate Blood Pressure [Left Brachial artery] Blood Pressure 127/75 [Right Brachial artery] O2 Saturation 97 Oxygen O2 Source Room air I&O (Last 24 Hrs): Intake and Output Totals x24h 11/16/23 11/17/23 11/18/23 23:59 23:59 23:59 Intake Total 2175 2818.75 840 Output Total 650 Balance 1525 2818.75 840 General: Alert, Oriented x3, Cooperative, Moderate distress Cardiovascular: Regular rate, Normal S1, Normal S2, No murmurs Respiratory: Chest non-tender, No respiratory distress, Breath sounds nml Abdomen: Normal bowel sounds, Soft, No tenderness, No hepatospenomegaly, No masses - Results Results: Laboratory Results WBC 11.3 x10^3/uL (4.8-10.8) H 11/17/23 05:22 RBC 3.12 10^6/uL (4.20-5.40) L 11/17/23 05:22 Hgb 8.9 g/dL (12.0-16.0) L 11/17/23 05:22 Hct 28.0 % (37.0-47.0) L 11/17/23 05:22 MCV 89.7 fL (81.0-99.0) 11/17/23 05:22 MCH 28.5 pg (27.0-31.0) 11/17/23 05:22 MCHC 31.8 g/dL (32.0-36.0) L 11/17/23 05:22 RDW 12.3 % (12.0-15.0) 11/17/23 05:22 Plt Count 358 10^3/uL (130-450) 11/17/23 05:22 MPV 9.4 fL (7.9-10.8) 11/17/23 05:22 Neut # (Auto) 7.4 10^3/uL (1.5-6.6) H 11/17/23 05:22 Lymph # (Auto) 2.1 10^3/uL (1.5-3.5) 11/17/23 05:22 [place] # (Auto) 0.8 10^3/uL (0.0-1.0) 11/17/23 05:22 Eos # (Auto) 0.9 10^3/uL (0.0-0.7) H 11/17/23 05:22 Baso # (Auto) 0.1 10^3/uL (0.0-0.1) 11/17/23 05:22 Absolute Nucleated RBC 0.00 x10^3/uL 11/17/23 05:22 Nucleated RBC % 0.0 /100WBC 11/17/23 05:22 Sodium 136 mmol/L (135-145) 11/17/23 05:22 Potassium 3.7 mmol/L (3.5-4.5) 11/17/23 05:22 Chloride 103 mmol/L (101-111) 11/17/23 05:22 Carbon Dioxide 27 mmol/L (21-32) 11/17/23 05:22 Anion Gap 6.0 (6-13) 11/17/23 05:22 BUN 9 mg/dL (6-20) 11/17/23 05:22 Creatinine 0.6 mg/dL (0.6-1.3) 11/17/23 05:22 Estimated GFR (MDRD) 104 (>89) 11/17/23 05:22 Glucose 81 mg/dL (74-104) 11/17/23 05:22 Calcium 9.1 mg/dL (8.5-10.3) 11/17/23 05:22 Magnesium 1.8 mg/dL (1.7-2.3) 11/14/23 16:17 Iron 24 ug/dL (50-212) L 11/18/23 10:29 TIBC 242 ug/dL (250-450) L 11/18/23 10:29 % Saturation 10 % (20-50) L 11/18/23 10:29 Transferrin 173 mg/dL (203-362) L 11/18/23 10:29 Ferritin 172.8 ng/mL (11.0-306.8) 11/18/23 10:29 Total Bilirubin 0.4 mg/dL (0.2-1.0) 11/14/23 16:17 AST 19 IU/L (10-42) 11/14/23 16:17 ALT 21 IU/L (10-60) 11/14/23 16:17 Alkaline Phosphatase 145 IU/L (42-121) H 11/14/23 16:17 Total Protein 7.6 g/dL (6.4-8.9) 11/14/23 16:17 Albumin 3.7 g/dL (3.2-5.5) 11/14/23 16:17 Globulin 3.9 g/dL (2.1-4.2) 11/14/23 16:17 Albumin/Globulin Ratio 0.9 (1.0-2.2) L 11/14/23 16:17 Vitamin D 25-Hydroxy 40.8 ng/mL (30.0-100.0) 11/17/23 05:22
[2023-11-18] MEDS: oxyCODONE ER 10 MG TABLET PO SCH (20:18)
[2023-11-18] MEDS: fentaNYL 100 MCG/2 ML VIAL IVP PRN (20:28)
[2023-11-19] MEDS: SCOPOLAMINE PATCH TOP SCH (09:30)
[2023-11-19] MEDS: CYANOCOBALAMIN 500 MCG TABLET PO SCH (09:52)
[2023-11-19] MEDS: oxyCODONE ER 40 MG TABLET PO SCH (09:53)
--- NOTE | 2023-11-19 10:58 | PROVIDER PROGRESS NOTE ---
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 --Increased Oxycodone BID to 40 mg. She appears to tolerate Fentanyl over other narcotics --Has some stairs at home. PT/OT ordered. --CT chest showing concern for pulmonary malignancy. --Prior history of lymphoma and Moh's surgery for skin cancer. --Has a PET scan at [facility] scheduled for this Sunday. --Palliative care consulted. (2) Anemia Qualifiers: Anemia type: unspecified type Qualified Code(s): D64.9 - Anemia, unspecified --Iron panel in AM. --Continue home vitamin supplementation. --No evidence of bleeding. (3) Pleural effusion Assessment/Plan: --CT chest showing evidence of necrotic pulmonary nodules. Concern for malignancy. Dispo: Continues to be in significant pain. Continue with PO and IV pain control. Our goal is to discharge on an oral regimen. (2) Anemia Qualifiers: Anemia type: unspecified type Qualified Code(s): D64.9 - Anemia, unspecified - Current Meds Current Meds: Current Medications Generic Name Dose Route Start Last Admin Trade Name Freq PRN Reason Stop Dose Admin Acetaminophen 500 mg 11/18/23 09:00 11/19/23 09:30 Acetaminophen 500 Mg Tablet PO 500 mg Q4H HOLLY Administration Cholecalciferol 10,000 unit 11/18/23 09:00 11/19/23 09:31 Cholecalciferol 5,000 Unit Capsule PO 10,000 unit DAILY HOLLY Administration Cyanocobalamin 500 mcg 11/19/23 09:00 11/19/23 09:52 Cyanocobalamin 500 Mcg Tablet PO 500 mcg MoWeFr HOLLY Administration Docusate Sodium 250 - 500 mg 11/18/23 09:00 11/19/23 09:31 Docusate Sodium 250 Mg Capsule PO 500 mg DAILY HOLLY Administration Estradiol 4 mg 11/15/23 09:00 11/19/23 09:52 Estradiol 1 Mg Tablet PO 4 mg DAILY HOLLY Administration Fentanyl 25 mcg 11/18/23 13:23 11/18/23 23:20 Fentanyl 100 Mcg/2 Ml Vial IVP 25 mcg Q1H PRN Administration Severe Pain (Level 7-10) Heparin Sodium (Porcine) 5,000 unit 11/14/23 22:00 11/19/23 09:56 Heparin 5,000 Unit/Ml Vial SUBQ 5,000 unit BID HOLLY Administration Hydromorphone HCl 0.5 mg 11/15/23 14:14 11/19/23 04:42 Hydromorphone 0.5 Mg/0.5 Ml Syringe IVP 0.5 mg Q2H PRN Administration Severe Pain (Level 7-10) Ketorolac Tromethamine 30 mg 11/17/23 12:44 11/19/23 04:59 Ketorolac 30 Mg/Ml Vial IVP 11/20/23 12:43 30 mg Q6HR PRN Administration Severe Pain (Level 7-10) Ondansetron HCl 4 mg 11/14/23 21:49 11/18/23 23:11 Ondansetron 4 Mg/2 Ml Vial IVP 4 mg Q6HR PRN Administration Nausea / Vomiting Oxycodone HCl 10 mg 11/14/23 21:49 11/18/23 01:21 Oxycodone 5 Mg Tablet PO 10 mg Q6HR PRN Administration Pain 5 to 7 Oxycodone HCl 40 mg 11/19/23 09:30 11/19/23 09:53 Oxycodone Er 40 Mg Tablet PO 40 mg BID HOLLY Administration Patient Own Med ( 1 each 11/15/23 21:00 11/18/23 20:32 Nortriptyline [ PO Not Given Pamelor] 10 Mg HS HOLLY Capsule) Polyethylene Glycol 17 gm 11/15/23 13:00 11/19/23 09:53 Polyethylene Glycol 3350 17 Gm Packet PO 17 gm BID HOLLY Administration Scopolamine HBr 1 patch 11/19/23 09:00 11/19/23 09:30 Scopolamine Patch TOP 1 patch Q3D HOLLY Administration Senna 8.6 - 17.2 mg 11/18/23 09:00 11/19/23 09:31 Senna 8.6 Mg Tablet PO 8.6 mg DAILY HOLLY Administration Sodium Chloride 10 ml 11/14/23 21:49 11/19/23 05:00 Sodium Chloride Flush 0.9% 10 Ml Syringe IVP 10 ml PRN PRN Administration NEEDED PER PROVIDER ORDERS Sodium Chloride 10 ml 11/15/23 01:00 11/19/23 09:53 Sodium Chloride Flush 0.9% 10 Ml Syringe IVP 10 ml 0100,0900,1700 HOLLY Administration - Lab Result Fish Bone Diagrams: 11/17/23 05:22 11/17/23 05:22 - Additional Planning My Orders: My Active Orders 11/18/23 13:23 fentaNYL 25 mcg IVP Q1H PRN 11/19/23 Palliative Care Consult [CONS] Routine 11/19/23 09:00 Cyanocobalamin [Vitamin B-12] 500 mcg PO MoWeFr Scopolamine Patch [Transderm-Scop] 1 patch TOP Q3D 11/19/23 09:30 oxyCODONE ER [OxyCONTIN] 40 mg PO BID 11/20/23 05:00 BMP - BASIC METABOLIC PANEL [CHEM] DAILYLAB CBC [CBC - COMP BLD CT W/AUTO DIFF] [HEME] DAILYLAB 11/21/23 05:00 BMP - BASIC METABOLIC PANEL [CHEM] DAILYLAB CBC [CBC - COMP BLD CT W/AUTO DIFF] [HEME] DAILYLAB 11/22/23 05:00 BMP - BASIC METABOLIC PANEL [CHEM] DAILYLAB CBC [CBC - COMP BLD CT W/AUTO DIFF] [HEME] DAILYLAB 11/23/23 05:00 BMP - BASIC METABOLIC PANEL [CHEM] DAILYLAB CBC [CBC - COMP BLD CT W/AUTO DIFF] [HEME] DAILYLAB 11/24/23 05:00 BMP - BASIC METABOLIC PANEL [CHEM] DAILYLAB CBC [CBC - COMP BLD CT W/AUTO DIFF] [HEME] DAILYLAB Subjective - Subjective Patient Reports: Feeling Better, Other Objective Vital Signs: Vital Signs - 24 hr 11/18/23 11/18/23 11/18/23 12:01 15:35 21:00 Temperature 36.5 C 36.4 C L 36.9 C Heart Rate [ 56 L 66 60 Brachial] Respiratory 18 18 16 Rate Blood Pressure 137/86 H [Left Brachial artery] Blood Pressure 127/76 135/78 H [Right Brachial artery] O2 Saturation 98 96 98 11/18/23 11/19/23 11/19/23 23:48 04:10 08:46 Temperature 36.9 C 36.9 C 36.7 C Heart Rate [ 62 58 L 61 Brachial] Respiratory 16 16 16 Rate Blood Pressure 135/73 H 130/65 [Left Brachial artery] Blood Pressure 127/75 [Right Brachial artery] O2 Saturation 96 96 96 Oxygen O2 Source Room air I&O (Last 24 Hrs): Intake and Output Totals x24h 11/17/23 11/18/23 11/19/23 23:59 23:59 23:59 Intake Total 2818.75 1810 1060 Balance 2818.75 1810 1060 Neuro: Alert, CN 2-12 Grossly Intact, Oriented Times 3 Cardiovascular: Regular rate, Normal S1, Normal S2, No murmurs Respiratory: Chest non-tender, No respiratory distress, Breath sounds nml Abdomen: Normal bowel sounds, Soft, No tenderness, No hepatospenomegaly, No mas ses - Results Results: Laboratory Results WBC 11.3 x10^3/uL (4.8-10.8) H 11/17/23 05:22 RBC 3.12 10^6/uL (4.20-5.40) L 11/17/23 05:22 Hgb 8.9 g/dL (12.0-16.0) L 11/17/23 05:22 Hct 28.0 % (37.0-47.0) L 11/17/23 05:22 MCV 89.7 fL (81.0-99.0) 11/17/23 05:22 MCH 28.5 pg (27.0-31.0) 11/17/23 05:22 MCHC 31.8 g/dL (32.0-36.0) L 11/17/23 05:22 RDW 12.3 % (12.0-15.0) 11/17/23 05:22 Plt Count 358 10^3/uL (130-450) 11/17/23 05:22 MPV 9.4 fL (7.9-10.8) 11/17/23 05:22 Neut # (Auto) 7.4 10^3/uL (1.5-6.6) H 11/17/23 05:22 Lymph # (Auto) 2.1 10^3/uL (1.5-3.5) 11/17/23 05:22 [place] # (Auto) 0.8 10^3/uL (0.0-1.0) 11/17/23 05:22 Eos # (Auto) 0.9 10^3/uL (0.0-0.7) H 11/17/23 05:22 Baso # (Auto) 0.1 10^3/uL (0.0-0.1) 11/17/23 05:22 Absolute Nucleated RBC 0.00 x10^3/uL 11/17/23 05:22 Nucleated RBC % 0.0 /100WBC 11/17/23 05:22 Sodium 136 mmol/L (135-145) 11/17/23 05:22 Potassium 3.7 mmol/L (3.5-4.5) 11/17/23 05:22 Chloride 103 mmol/L (101-111) 11/17/23 05:22 Carbon Dioxide 27 mmol/L (21-32) 11/17/23 05:22 Anion Gap 6.0 (6-13) 11/17/23 05:22 BUN 9 mg/dL (6-20) 11/17/23 05:22 Creatinine 0.6 mg/dL (0.6-1.3) 11/17/23 05:22 Estimated GFR (MDRD) 104 (>89) 11/17/23 05:22 Glucose 81 mg/dL (74-104) 11/17/23 05:22 Calcium 9.1 mg/dL (8.5-10.3) 11/17/23 05:22 Magnesium 1.8 mg/dL (1.7-2.3) 11/14/23 16:17 Iron 24 ug/dL (50-212) L 11/18/23 10:29 TIBC 242 ug/dL (250-450) L 11/18/23 10:29 % Saturation 10 % (20-50) L 11/18/23 10:29 Transferrin 173 mg/dL (203-362) L 11/18/23 10:29 Ferritin 172.8 ng/mL (11.0-306.8) 11/18/23 10:29 Total Bilirubin 0.4 mg/dL (0.2-1.0) 11/14/23 16:17 AST 19 IU/L (10-42) 11/14/23 16:17 ALT 21 IU/L (10-60) 11/14/23 16:17 Alkaline Phosphatase 145 IU/L (42-121) H 11/14/23 16:17 Total Protein 7.6 g/dL (6.4-8.9) 11/14/23 16:17 Albumin 3.7 g/dL (3.2-5.5) 11/14/23 16:17 Globulin 3.9 g/dL (2.1-4.2) 11/14/23 16:17 Albumin/Globulin Ratio 0.9 (1.0-2.2) L 11/14/23 16:17 Vitamin D 25-Hydroxy 40.8 ng/mL (30.0-100.0) 11/17/23 05:22
--- NOTE | 2023-11-19 13:20 | CONSULTATION NOTE ---
Palliative Care Consultation - Referral Referring Provider: Roselyn Lao DO Time of Visit: 11:30-13:00 Referral setting: Hospitalized patient Referral Reason: Pain of neoplastic origin/Anxiety/Goals of care - Information Sources Records reviewed: Previous records reviewed History/Review of Systems obtained from: Patient, Family ( Ivette) Exam limitations: No limitations - History of Present Illness Brief History of Present Illness: This is a 53-year-old who identifies as female, who was admitted on 11/14/23 for evaluation of intractable bilateral hip pain, this is in follow up after a series of unfortunate events. Patient actually had been having increased pain since August, has been trying to seek care since September regarding this bilateral hip pain. Hayley presented with right rib pain to the ED 10/30/[address] scan was found to have a Left pleural effusion, did receive a thoracentesis with removal of 750 ml bloody drainage, sent for pathology. Unfortunately this did not reveal anything to inform the course going forward. She came again 11/03/23 [facility] and had a horrible experience with no further progress in her pain control or work up. She has been doing further work up through her PCP at [facility] and has a pending PET scan this Sunday, she is [facility] a diagnosis of nonhodgkins lymphoma when 20 years old and in the [employer]. 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 She was admitted here on 11/14/2023 for pain crisis, bilateral. Was found to have an lytic lesion involving right iliac wing, with disruption of anterior and posterior cortex adjacent to the lesion, with no fracture. A hypodensity involving the right hepatic dome, indeterminate nature. Notable fecal load, complete resolution of previously noted left pleural effusion, and a pleural- based necrotic appearing lesions involving anterior and lateral periphery of the upper lobe concerning for pulmonary malignancy, and mildly enlarged mediastinal and right hilar lymph nodes. Patient does have difficulty with narcotics, has had difficulty staying on top of pain, has been escalating Oxy codon use, with most recent dose OxyContin 40 mg in a.m. Have been trying to transition over to oral medications, patient has severe reactions to morphine with nausea and vomiting, had been on chronic pain meds long-term, and had been able to wean herself off, and was quite active with hiking, focusing on healthy behaviors, and baseline activity was walking 3 to 5 miles 5 times a week prior to this episode starting in August. Patient has lost 10 pounds in about 15 days, she does get easily claustrophobic so difficulty with scans, particularly in the context of MRI, weightbearing increases pain, and medications have initiated nausea and vomiting. Patient has felt better now with scope patch, has been able to tolerate the OxyContin, and does get actually quite a bit of relief with acetaminophen 500 mg every 4 hours. Given outpatient opioid use, reviewed most likely OxyContin not able to get covered, will transition patient to fentanyl, to see if able to tolerate this.Will initiate at fentanyl 25 mcg patch, most likely needs for baseline between 37 and 50 mcg given patient's severity of her pain. Would use oxycodone 10 mg 1 tab every 3-4 hours for breakthrough pain, and given patient's longstanding peripheral neuropathy, would initiate duloxetine 20 mg with goal to titrate up. Palliative care meeting with patient regarding pain and symptom management, patient's goals are to get an underlying diagnosis and etiology, to be able to move forward on treatment and a roadmap for managing long-term. Patient is expecting a call at 1 from [facility], discussed with most recent CT scan most likely can move forward with oncology referral, recommended palliative care outpatient referral, and to move forward with her PET scan. Medical/Surgical History - Past Medical History Cardiovascular: reports: High cholesterol, Valve disorder Respiratory: reports: Shortness of breath, Other (pleural effusion; pulmonary nodules) Neuro: Migraines, Peripheral neuropathy, Motion sickness, Other GI: reports: Chronic constipation : reports: None Psych: reports: Depression, Post traumatic stress disorder, Claustrophobia Musculoskeletal: reports: Fibromyalgia, Fatigue, Chronic back pain Derm: reports: Other (hx recent basal cell CA) MRSA Hx?: No - Past Surgical History HEENT: reports: Tonsil/Adenoidectomy Derm: reports: Skin cancer surgery Social History - Living Situation Living arrangement: At home Living Situation: With spouse/s.o. Support System: Patient is to Ivette, they have been together for 38 years and 35 years. They do have a child who lives in [place], they are , and quite supportive. Ivette is struggling whether to continue with current semester as she is in school, she too is a cancer survivor. They also have a supportive community here in [place], they have been here since 2017, previous to this they lived full-time and traveled in . Patient does not have , nor Medicare. [facility] dependent on [facility], would b enefit from moving forward for [facility] application. Medications/Allergies - Medications Active Medication List: Active Medications Acetaminophen (Acetaminophen 500 Mg Tablet) 500 mg PO Q4H [facility] Last Admin: 11/19/23 12:40 Dose: 500 mg Cholecalciferol (Cholecalciferol 5,000 Unit Capsule) 10,000 unit PO DAILY [facility] Last Admin: 11/19/23 09:31 Dose: 10,000 unit Cyanocobalamin (Cyanocobalamin 500 Mcg Tablet) 500 mcg PO MoWeFr [facility] Last Admin: 11/19/23 09:52 Dose: 500 mcg Diclofenac Sodium (Diclofenac Sodium 1% Gel 50 Gm Tube) 4 gm TOP QID PRN PRN Reason: PAIN 1-4 Docusate Sodium (Docusate Sodium 250 Mg Capsule) 250 - 500 mg PO DAILY [facility] Last Admin: 11/19/23 09:31 Dose: 500 mg Duloxetine HCl (Duloxetine 20 Mg Capsule) 20 mg PO DAILY [facility] Estradiol (Estradiol 1 Mg Tablet) 4 mg PO DAILY [facility] Last Admin: 11/19/23 09:52 Dose: 4 mg Fentanyl (Fentanyl 100 Mcg/2 Ml Vial) 25 mcg IVP Q1H PRN PRN Reason: Severe Pain (Level 7-10) Last Admin: 11/18/23 23:20 Dose: 25 mcg Fentanyl (Fentanyl 25 Mcg Patch) 1 patch TOP Q3D [facility] Heparin Sodium (Porcine) (Heparin 5,000 Unit/Ml Vial) 5,000 unit SUBQ BID [facility] Last Admin: 11/19/23 09:56 Dose: 5,000 unit Hydromorphone HCl (Hydromorphone 0.5 Mg/0.5 Ml Syringe) 0.5 mg IVP Q2H PRN PRN Reason: Severe Pain (Level 7-10) Last Admin: 11/19/23 04:42 Dose: 0.5 mg Ketorolac Tromethamine (Ketorolac 30 Mg/Ml Vial) 30 mg IVP Q6HR PRN PRN Reason: Severe Pain (Level 7-10) Stop: 04/09/24 12:43 Last Admin: 11/19/23 04:59 Dose: 30 mg Magnesium Oxide (Magnesium Oxide 400 Mg Tablet) 400 mg PO DAILY PRN PRN Reason: Leg Cramps Ondansetron HCl (Ondansetron 4 Mg/2 Ml Vial) 4 mg IVP Q6HR PRN PRN Reason: Nausea / Vomiting Last Admin: 11/18/23 23:11 Dose: 4 mg Oxycodone HCl (Oxycodone 5 Mg Tablet) 10 mg PO Q4H PRN PRN Reason: Pain 5 to 7 Patient Own Med ( Nortriptyline [ Pamelor] 10 Mg Capsule) 1 each PO HS [facility] Last Admin: 11/18/23 20:32 Dose: Not Given Polyethylene Glycol (Polyethylene Glycol 3350 17 Gm Packet) 17 gm PO BID [facility] Last Admin: 11/19/23 09:53 Dose: 17 gm Scopolamine HBr (Scopolamine Patch) 1 patch TOP Q3D [facility] Last Admin: 11/19/23 09:30 Dose: 1 patch Senna (Senna 8.6 Mg Tablet) 8.6 - 17.2 mg PO DAILY [facility] Last Admin: 11/19/23 09:31 Dose: 8.6 mg Sodium Chloride (Sodium Chloride Flush 0.9% 10 Ml Syringe) 10 ml IVP PRN PRN PRN Reason: NEEDED PER PROVIDER ORDERS Last Admin: 11/19/23 05:00 Dose: 10 ml Sodium Chloride (Sodium Chloride Flush 0.9% 10 Ml Syringe) 10 ml IVP 0100,0900,1700 [facility] Last Admin: 11/19/23 09:53 Dose: 10 ml estradioL [Estradiol] 4 mg PO DAILY 10/30/23 Acetaminophen [Tylenol] 1,000 mg PO Q8HR PRN 11/14/23 Nortriptyline [Pamelor] 10 mg PO HS 11/14/23 Ondansetron HCl 4 mg PO PRN PRN 11/14/23 oxyCODONE [Roxicodone] 1 tab PO Q4-6H PRN 11/14/23 Cholecalciferol (Vitamin D3) [Is-D-10,000] 250 mcg PO DAILY 11/15/23 Cyanocobalamin (Vitamin B-12) [Vitamin B12] 500 mcg PO UD 11/15/23 Magnesium Citrate 100 mg PO DAILY PRN 11/15/23 - Allergies Allergies/Adverse Reactions: Allergies Allergy/AdvReac Type Severity Reaction Status Date / Time adhesive tape Allergy Rash Verified 11/14/23 15:44 Bleach (Sodium Hypochlorite) Allergy Rash Verified 11/14/23 15:44 metoclopramide [From Reglan] Allergy Unknown Verified 11/14/23 15:44 morphine Allergy Emesis Verified 11/14/23 15:44 prochlorperazine Allergy Emesis Verified 11/14/23 15:44 [From Compazine] hydromorphone [From Dilaudid] AdvReac Emesis Verified 11/14/23 15:44 tramadol AdvReac Emesis Verified 11/14/23 15:44 Review of Systems - Constitutional Constitutional: reports: Fatigue, Weakness, Weight loss - Cardiovascular Cardiovascular: reports: Decr. exercise tolerance - Respiratory Respiratory: reports: SOB with exertion, Other (recent left pleural effusion) - Gastrointestinal Gastrointestinal: reports: Constipation (no bowel movement since ), Nausea (better with scop. has ondansetron at home), Good appetite (newly improved) - Musculoskeletal Musculoskeletal: reports: Stiffness, Muscle weakness, Joint pain (bilateral hip pain), Other (recommended transport chair and decreased weight bearing until underlying etiology defined) - Neurological Neurological: reports: General weakness, Numbness - Psychiatric Psychiatric: reports: Anxiety (has been difficult with pending work up / navigating health care system) - Hematologic/Lymphatic Hematologic/Lymph: reports: Anemia Physical Exam - Vital Signs Vital Signs: Vital Signs x48h Temp Pulse Resp BP BP Pulse Ox 11/19/23 12:55 36.6 C 65 18 141/82 H 97 11/19/23 08:46 36.7 C 61 16 130/65 96 - Physical Exam General Appearance: positive: No acute distress, Alert Eyes Bilateral: positive: Normal inspection ENT: positive: No signs of dehydration Neck: positive: Trachea midline Respiratory: positive: No respiratory distress Abdomen: positive: Soft Skin: positive: Pallor Extremities: positive: No pedal edema Neurologic/Psychiatric: positive: Oriented x3 Palliative Care - POLST Patient has POLST: No Pain: Pain improved, Location (bilateral hip pain 4/10; up to 8/10 with weight bearing) Tiredness/Fatigue: Moderate (4-6) Constipation: Yes, Opoid induced, Unmanaged Performance Status: Patient's previous level of functioning was actually quite good, was hiking on a regular basis, using walking poles, goal was 3 to 5 miles about 5 times a week. With increasing pain, declining functional status. Patient does have 4 stairs indoors, and no bathroom upstairs. Will need to look at commode and modifying environment. - Palliative Care Discussion: Patient has had a fairly traumatic several weeks, in the context of trying to get some underlying answers and move forward on a treatment plan. [facility], does not want to return there, wants to pursue community support and oncology services through the [facility]. They do have a DPOA form, with a healthcare directive from the [facility], weighing benefits and burdens of treatment moving forward, choosing the middle ground depending on situation. We discussed in the context of this planning for the future, would make recommendations we would explore this further, but DPOA is very important and needs to get it notarized.Patient's immediate goals are for pain to be controlled, to have a pathway through to oncology and further workup, with hope for treatment options both for quality and quantity of life. Results - Lab Results Lab results reviewed: Yes Fish Bones: 11/17/23 05:22 11/17/23 05:22 Impression and Recommendations - Palliative Care Impression: This is a 53-year-old with history of non-Hodgkin's lymphoma, now presenting with concern for malignancy, currently of unknown origin. Patient with uncontrolled pain, complicated by both chronic pain history, and opioid intolerances. Patient introduced to palliative care for support for symptom management, psychosocial support and anticipatory guidance. Will pursue outpatient referral to be able to follow. Recommendations/Counseling Done: 1. Pain of neoplastic origin. Patient presents with osteo lytic lesion due to metastases, with poorly controlled up to this point. Was recently increased this morning to OxyContin 40 mg twice daily, discussion with hospitalist in the context of outpatient management, OxyContin often not covered nor easily available. Would recommend fentanyl as she has been able to tolerate this though has been ineffective on inpatient, discussed this was related to small doses. Would recommend starting fentanyl 25 mcg patch, and titrate fairly aggressively over the next 24 to 48 hours. Patient has been able to tolerate oxycodone, recommend 10 mg every 3-4 hours for breakthrough pain. Patient does appear to be responding well to the scope patch for her nausea and vomiting most likely induced by pain medications. Patient also perceives acetaminophen 500 mg does give her some relief, would continue recommended her receiving 500 mg every 4 hours [id number] per her perception, caution not to use more than 3000 mg in 24 hours. final RX for fentanyl and oxycodone need to be sent to [facility], their baseline pharmacy [facility] does not do high dose opioids. Would order scop patch as well as been effective for n/v. 2. Anxiety. This is multifactorial and appropriate given the situation. Given patient's longstanding peripheral neuropathy would recommend and adding to her pain regimen, duloxetine start with 20 mg and can titrate up on outpatient basis. 3.Opioid-induced constipation. Patient with no bowel movement since , follow-up with hospitalist regarding more aggressive bowel intervention i.e. mag citrate or milk of mag. Counseled on patient to continue MiraLAX 1 capful twice daily, and in addition add senna 8.6 mg 2 tabs 3 times daily to counterbalance her opioid program. Counseling provided regarding "mush" and "push", instructions provided for outpatient follow-up 4. Cancer of unknown origin, stage IV. Patient does have PET scan pending at [facility], recommended to complete. Given recent CT scan also recommended follow through on oncology referral in the context of availability. Will reach out to [facility] to make sure she is on the radar for appointment as soon referral available. 5. ACP. Patient does have a DPOA form in place, would like notarized. Patient would also benefit from follow-up with [facility] regarding if qualifies for [facility] or ther healthcare support for cost and caregiving. 90 minutes with review of chart, counseling with patient and regarding pain and symptom management, coordination of care with hospitalist team and reach out to oncology. Palliative care continue to build rapport, will follow for ongoing pain management.
[2023-11-19] MEDS: MAGNESIUM HYDROXIDE 2,400 MG/30 ML UDC PO ONE (13:46)
[2023-11-19] MEDS: DULoxetine 20 MG CAPSULE PO SCH (13:52)
[2023-11-19] MEDS: fentaNYL 25 MCG PATCH TOP SCH (13:52)
[2023-11-19] MEDS: oxyCODONE 5 MG TABLET PO PRN (22:18)
[2023-11-19] MEDS: SENNA 8.6 MG TABLET PO SCH (22:19)
[2023-11-20 05:24] LABS: BASOPHILS # (AUTO) 0.1 10^3/uL (0.0-0.1); BASOPHILS % (AUTO) 0.8 %; EOSINOPHILS % (AUTO) 5.6 %; HCT - HEMATOCRIT 31.6 % (37.0-47.0); HGB - HEMOGLOBIN 10.3 g/dL (12.0-16.0); LYMPHOCYTES # (AUTO) 2.6 10^3/uL (1.5-3.5); LYMPHOCYTES % (AUTO) 15.5 %; MEAN CORPUSCULAR HEMOGLOBIN 28.9 pg (27.0-31.0); MEAN CORPUSCULAR HGB CONC 32.6 g/dL (32.0-36.0); MEAN CORPUSCULAR VOLUME 88.8 fL (81.0-99.0); MEAN PLATELET VOLUME 9.3 fL (7.9-10.8); MONOCYTES # (AUTO) 1.2 10^3/uL (0.0-1.0); MONOCYTES % (AUTO) 7.2 %; NEUTROPHILS # (AUTO) 11.9 10^3/uL (1.5-6.6); NEUTROPHILS % (AUTO) 70.1 %; PLT - PLATELET COUNT 414 10^3/uL (130-450); RED BLOOD COUNT 3.56 10^6/uL (4.20-5.40); RED CELL DISTRIBUTION WIDTH 12.6 % (12.0-15.0)
[2023-11-20 05:43] LABS: CALCIUM 9.9 mg/dL (8.5-10.3); CREATININE 0.8 mg/dL (0.6-1.3); POTASSIUM 3.9 mmol/L (3.5-4.5)
[2023-11-20] MEDS: fentaNYL 25 MCG PATCH TOP SCH ×2 (13:38→16:01)
[2023-11-20 14:04] LABS: INR 1.3 (0.8-1.2); PT - PROTHROMBIN TIME 14.3 secs (9.9-12.6)
--- NOTE | 2023-11-20 17:11 | PROVIDER PROGRESS NOTE ---
Subjective - Prog Note Date Prog Note Date: 11/20/23 Prog Note Time: 17:09 - Subjective Subjective: Unfortunately she has been managed with her pain with OxyContin. OxyContin was starting to achieve some relief. However, OxyContin is not covered by [facility] insurance and the patient had to be changed to fentanyl yesterday. She is on a 25 mcg patch. This morning she is completely miserable. Needing supplementation with IV pain medication. Case discussed with palliative care for over 15 minutes. Trying to make sure that we cover all the bases before this unfortunate lady is discharged. I had hoped to do a bone biopsy of the iliac wing lesion. But when I put in the order, the radiologist felt that 2 PM was too late. The patient could not be recovered in the appropriate time within the department. And tomorrow the radiologist who is on cannot do the biopsy. And on Sunday there is no radiologist onsite. Current Medications - Current Medications Current Medications: Active Medications Acetaminophen (Acetaminophen 500 Mg Tablet) 500 mg PO Q4H [facility] Last Admin: 11/20/23 13:37 Dose: 500 mg Cholecalciferol (Cholecalciferol 5,000 Unit Capsule) 10,000 unit PO DAILY [facility] Last Admin: 11/20/23 08:53 Dose: 10,000 unit Cyanocobalamin (Cyanocobalamin 500 Mcg Tablet) 500 mcg PO MoWeFr [facility] Last Admin: 11/19/23 09:52 Dose: 500 mcg Diclofenac Sodium (Diclofenac Sodium 1% Gel 50 Gm Tube) 4 gm TOP QID PRN PRN Reason: PAIN 1-4 Docusate Sodium (Docusate Sodium 250 Mg Capsule) 250 - 500 mg PO DAILY [facility] Last Admin: 11/20/23 08:51 Dose: 500 mg Duloxetine HCl (Duloxetine 20 Mg Capsule) 20 mg PO DAILY [facility] Last Admin: 11/20/23 08:53 Dose: 20 mg Estradiol (Estradiol 1 Mg Tablet) 4 mg PO DAILY [facility] Last Admin: 11/20/23 08:53 Dose: 4 mg Fentanyl (Fentanyl 100 Mcg/2 Ml Vial) 25 mcg IVP Q1H PRN PRN Reason: Severe Pain (Level 7-10) Last Admin: 11/18/23 23:20 Dose: 25 mcg Fentanyl (Fentanyl 25 Mcg Patch) 1 patch TOP Q3D [facility] Last Admin: 11/19/23 13:52 Dose: 1 patch Heparin Sodium (Porcine) (Heparin 5,000 Unit/Ml Vial) 5,000 unit SUBQ BID [facility] Last Admin: 11/20/23 08:54 Dose: 5,000 unit Hydromorphone HCl (Hydromorphone 0.5 Mg/0.5 Ml Syringe) 0.5 mg IVP Q2H PRN PRN Reason: Severe Pain (Level 7-10) Last Admin: 11/20/23 12:51 Dose: 0.5 mg Magnesium Oxide (Magnesium Oxide 400 Mg Tablet) 400 mg PO DAILY PRN PRN Reason: Leg Cramps Ondansetron HCl (Ondansetron 4 Mg/2 Ml Vial) 4 mg IVP Q6HR PRN PRN Reason: Nausea / Vomiting Last Admin: 11/20/23 10:47 Dose: 4 mg Oxycodone HCl (Oxycodone 5 Mg Tablet) 10 mg PO Q4H PRN PRN Reason: Pain 5 to 7 Last Admin: 11/20/23 04:49 Dose: 10 mg Patient Own Med ( Nortriptyline [ Pamelor] 10 Mg Capsule) 1 each PO [facility] Last Admin: 11/19/23 21:32 Dose: Not Given Polyethylene Glycol (Polyethylene Glycol 3350 17 Gm Packet) 17 gm PO BID [facility] Last Admin: 11/20/23 08:53 Dose: 17 gm Scopolamine HBr (Scopolamine Patch) 1 patch TOP Q3D [facility] Last Admin: 11/19/23 09:30 Dose: 1 patch Senna (Senna 8.6 Mg Tablet) 8.6 - 17.2 mg PO DAILY [facility] Last Admin: 11/20/23 08:52 Dose: 8.6 mg Sodium Chloride (Sodium Chloride Flush 0.9% 10 Ml Syringe) 10 ml IVP PRN PRN PRN Reason: NEEDED PER PROVIDER ORDERS Last Admin: 11/19/23 17:26 Dose: 10 ml Sodium Chloride (Sodium Chloride Flush 0.9% 10 Ml Syringe) 10 ml IVP 0100,0900,1700 [facility] Last Admin: 11/20/23 08:48 Dose: 10 ml estradioL [Estradiol] 4 mg PO DAILY 10/30/23 Acetaminophen [Tylenol] 1,000 mg PO Q8HR PRN 11/14/23 Nortriptyline [Pamelor] 10 mg PO HS 11/14/23 Ondansetron HCl 4 mg PO PRN PRN 11/14/23 oxyCODONE [Roxicodone] 1 tab PO Q4-6H PRN 11/14/23 Cholecalciferol (Vitamin D3) [Is-D-10,000] 250 mcg PO DAILY 11/15/23 Cyanocobalamin (Vitamin B-12) [Vitamin B12] 500 mcg PO UD 11/15/23 Magnesium Citrate 100 mg PO DAILY PRN 11/15/23 Objective - Vital Signs/Intake & Output Reviewed Vital Signs: Yes Vital Signs: Vital Signs x48h Temp Pulse Resp BP Pulse Ox 11/20/23 16:22 36.2 C L 58 L 16 146/75 H 95 Intake & Output: Intake & Output 11/17/23 11/18/23 11/19/23 11/20/23 23:59 23:59 23:59 23:59 Intake Total 2818.75 1810 1720 600 Output Total 100 100 Balance 2818.75 1810 1620 500 - Objective General Appearance: positive: Alert, Anxious (Cachectic, bilateral temporal wast ing), Other (Very thin white female, grimacing with pain. But no agitation, not restless.) Eyes Bilateral: positive: PERRL ENT: positive: Pharynx nml Neck: positive: No JVD. negative: Stiff neck Respiratory: positive: No respiratory distress. negative: Wheezes, Rales, Rhonchi Cardiovascular: positive: Regular rate & rhythm, Tachycardia (With the pain) Abdomen: positive: Non-tender, No organomegaly, Nml bowel sounds Skin: positive: Warm, Dry, Pallor Extremities: positive: Non-tender, Full ROM Neurologic/Psychiatric: positive: Oriented x3, CN's nml (2-12), Motor nml - Lab Results Fish Bones: 11/20/23 04:58 11/20/23 04:58 Other Labs: Lab Results x24hrs 11/20/23 11/20/23 11/20/23 Range/Units 13:31 04:58 04:58 WBC 17.0 H (4.8-10.8) x10^3/uL RBC 3.56 L (4.20-5.40) 10^6/uL Hgb 10.3 L (12.0-16.0) g/dL Hct 31.6 L (37.0-47.0) % MCV 88.8 (81.0-99.0) fL MCH 28.9 (27.0-31.0) pg MCHC 32.6 (32.0-36.0) g/dL RDW 12.6 (12.0-15.0) % Plt Count 414 (130-450) 10^3/uL MPV 9.3 (7.9-10.8) fL Neut # (Auto) 11.9 H (1.5-6.6) 10^3/uL Lymph # (Auto) 2.6 (1.5-3.5) 10^3/uL [place] # (Auto) 1.2 H (0.0-1.0) 10^3/uL Eos # (Auto) 1.0 H (0.0-0.7) 10^3/uL Baso # (Auto) 0.1 (0.0-0.1) 10^3/uL Absolute Nucleated RBC 0.00 x10^3/uL Nucleated RBC % 0.0 /100WBC PT 14.3 H (9.9-12.6) secs INR 1.3 H (0.8-1.2) Sodium 136 (135-145) mmol/L Potassium 3.9 (3.5-4.5) mmol/L Chloride 98 L (101-111) mmol/L Carbon Dioxide 29 (21-32) mmol/L Anion Gap 9.0 (6-13) BUN 10 (6-20) mg/dL Creatinine 0.8 (0.6-1.3) mg/dL Estimated GFR (MDRD) 75 L (>89) Glucose 90 (74-104) mg/dL Calcium 9.9 (8.5-10.3) mg/dL Assessment/Plan - Problem List (1) Osteolytic lesion due to metastasis Impression: Assessment/Plan: --Lytic lesion on right Iliac wing. Unable to be biopsied today, tomorrow or the day after. --CT chest showing concern for pulmonary malignancy. --Prior history of lymphoma and Moh's surgery for skin cancer. --Has a PET scan at [facility] scheduled for this Sunday. --OxyContin has been discontinued. Nauseated with the fentanyl this morning. But she will have to fail fentanyl and MS Contin before OxyContin will be paid for. I will double the fentanyl from 25 mcg to 50 mcg. --Has some stairs at home. PT/OT ordered and to get eval today --Palliative care consulted. Case discussed at length this morning. If her pain is controlled with fentanyl 50 mcg she may be able to be discharged tomorrow with the fentanyl and the oral meds. (2) Anemia Qualifiers: Anemia type: unspecified type Qualified Code(s): D64.9 - Anemia, unspecified --Iron panel shows Iron is 24, TIBC 242, transferrin 173, ferritin 172. --Continue home vitamin supplementation. --No evidence of bleeding. I have ordered iron infusion today. (3) Pleural effusion Assessment/Plan: --CT chest showing evidence of necrotic pulmonary nodules. Concern for malignancy. The effusion is not large enough for thoracentesis. (4) Leukocytosis. Her white cell count continues to climb. She is afebrile. No cough or phlegm production. No urgency, frequency dysuria. No abdominal pain. My plan is to continue to monitor for signs and symptoms of infection. I am not can be giving antibiotics right now. This could be a sequela of the necrotic pulmonary nodules.
[2023-11-20] MEDS: IRON DEXTRAN 1,500 MG in SODIUM CHLORIDE 0.9% 500 ML IV ONE (18:16)
[2023-11-21 06:03] LABS: BASOPHILS # (AUTO) 0.1 10^3/uL (0.0-0.1); BASOPHILS % (AUTO) 0.7 %; EOSINOPHILS % (AUTO) 5.8 %; HCT - HEMATOCRIT 31.2 % (37.0-47.0); HGB - HEMOGLOBIN 9.9 g/dL (12.0-16.0); LYMPHOCYTES # (AUTO) 1.9 10^3/uL (1.5-3.5); LYMPHOCYTES % (AUTO) 11.3 %; MEAN CORPUSCULAR HEMOGLOBIN 28.4 pg (27.0-31.0); MEAN CORPUSCULAR HGB CONC 31.7 g/dL (32.0-36.0); MEAN CORPUSCULAR VOLUME 89.4 fL (81.0-99.0); MEAN PLATELET VOLUME 9.1 fL (7.9-10.8); MONOCYTES # (AUTO) 1.2 10^3/uL (0.0-1.0); MONOCYTES % (AUTO) 7.1 %; NEUTROPHILS # (AUTO) 12.3 10^3/uL (1.5-6.6); NEUTROPHILS % (AUTO) 74.2 %; PLT - PLATELET COUNT 356 10^3/uL (130-450); RED BLOOD COUNT 3.49 10^6/uL (4.20-5.40); RED CELL DISTRIBUTION WIDTH 12.9 % (12.0-15.0); WHITE BLOOD COUNT 16.6 x10^3/uL (4.8-10.8)
[2023-11-21 06:23] LABS: CALCIUM 9.9 mg/dL (8.5-10.3); CREATININE 0.7 mg/dL (0.6-1.3); POTASSIUM 3.6 mmol/L (3.5-4.5)
[2023-11-21 08:44] VITALS: BP 149/86; O2SAT 94
--- NOTE | 2023-11-21 11:46 | CONSULTATION NOTE ---
Palliative Care Follow Up - Referral Referring Provider: Dr Roselyn Lao Time of Visit: 11:00-11:30 am Referral setting: Hospitalized patient Referral Reason: Pain of neoplastic origin/Goals of Car - Information Sources Records reviewed: RN notes reviewed, Previous records reviewed History/Review of Systems obtained from: Patient Exam limitations: No limitations - History of Present Illness Update Brief HPI Update: Please see HPI 11/18 for more expanded. Hayley continues to have significant difficulties with ongoing pain. Mostly located in her hips, worsening with any kind of weightbearing. At rest pain 4/10 with ambulation to bathroom 10/10 and triggers vomiting. She was switched to fentanyl 25 mcg patch, needed to increase to 50, is starting to feel little bit better, but still needing oxycodone 10 mg every 4 hours along with her acetaminophen, and feels pain is still undermedicated. Patient would benefit from moving up to fentanyl 75 mcg patch. Patient is getting ready for discharge, is hopeful and has been in touch with PCP about continuing workup, as this is living somewhat in a "twilight zo ne" in looking for a diagnosis and underlying etiology. Past Medical History: Peripheral neuropathy CRPS, fibromyalgia, valve disorder, motion sickness, chronic constipation, depression, PTSD, claustrophobia, fatigue, chronic back pain, history of recent basal cell CA Social History - Living Situation Living arrangement: At home Living Situation: With spouse/s.o. Support System: Patient is to Ivette, they have been together for 38 years and 35 years. They do have a child who lives in [place], they are , and quite supportive. Ivette is struggling whether to continue with current semester as she is in school, she too is a cancer survivor. They also have a supportive community here in [place], they have been here since 2017, previous to this they lived full-time and traveled in . Patient does not have , nor Medicare. Has been dependent on [facility], would benefit from moving forward for [facility] application. Medications/Allergies - Medications Active Medication List: Active Medications Acetaminophen (Acetaminophen 500 Mg Tablet) 500 mg PO Q4H [facility] Last Admin: 11/21/23 08:38 Dose: 500 mg Cholecalciferol (Cholecalciferol 5,000 Unit Capsule) 10,000 unit PO DAILY [facility] Last Admin: 11/21/23 08:38 Dose: 10,000 unit Cyanocobalamin (Cyanocobalamin 500 Mcg Tablet) 500 mcg PO MoWeFr [facility] Last Admin: 11/21/23 08:41 Dose: 500 mcg Diclofenac Sodium (Diclofenac Sodium 1% Gel 50 Gm Tube) 4 gm TOP QID PRN PRN Reason: PAIN 1-4 Docusate Sodium (Docusate Sodium 250 Mg Capsule) 250 - 500 mg PO DAILY [facility] Last Admin: 11/21/23 08:38 Dose: 250 mg Duloxetine HCl (Duloxetine 20 Mg Capsule) 20 mg PO DAILY [facility] Last Admin: 11/21/23 08:41 Dose: 20 mg Estradiol (Estradiol 1 Mg Tablet) 4 mg PO DAILY [facility] Last Admin: 11/21/23 08:38 Dose: 4 mg Fentanyl (Fentanyl 100 Mcg/2 Ml Vial) 25 mcg IVP Q1H PRN PRN Reason: Severe Pain (Level 7-10) Last Admin: 11/18/23 23:20 Dose: 25 mcg Fentanyl (Fentanyl 25 Mcg Patch) 1 patch TOP Q3D [facility] Last Admin: 11/19/23 13:52 Dose: 1 patch Heparin Sodium (Porcine) (Heparin 5,000 Unit/Ml Vial) 5,000 unit SUBQ BID [facility] Last Admin: 11/21/23 08:41 Dose: 5,000 unit Hydromorphone HCl (Hydromorphone 0.5 Mg/0.5 Ml Syringe) 0.5 mg IVP Q2H PRN PRN Reason: Severe Pain (Level 7-10) Last Admin: 11/21/23 07:57 Dose: 0.5 mg Magnesium Oxide (Magnesium Oxide 400 Mg Tablet) 400 mg PO DAILY PRN PRN Reason: Leg Cramps Ondansetron HCl (Ondansetron 4 Mg/2 Ml Vial) 4 mg IVP Q6HR PRN PRN Reason: Nausea / Vomiting Last Admin: 11/21/23 04:52 Dose: 4 mg Oxycodone HCl (Oxycodone 5 Mg Tablet) 10 mg PO Q4H PRN PRN Reason: Pain 5 to 7 Last Admin: 11/21/23 09:34 Dose: 10 mg Patient Own Med ( Nortriptyline [ Pamelor] 10 Mg Capsule) 1 each PO [facility] Last Admin: 11/20/23 20:59 Dose: Not Given Polyethylene Glycol (Polyethylene Glycol 3350 17 Gm Packet) 17 gm PO BID [facility] Last Admin: 11/21/23 08:37 Dose: 17 gm Scopolamine HBr (Scopolamine Patch) 1 patch TOP Q3D [facility] Last Admin: 11/19/23 09:30 Dose: 1 patch Senna (Senna 8.6 Mg Tablet) 8.6 - 17.2 mg PO DAILY [facility] Last Admin: 11/21/23 08:38 Dose: 8.6 mg Sodium Chloride (Sodium Chloride Flush 0.9% 10 Ml Syringe) 10 ml IVP PRN PRN PRN Reason: NEEDED PER PROVIDER ORDERS Last Admin: 11/21/23 03:06 Dose: 10 ml Sodium Chloride (Sodium Chloride Flush 0.9% 10 Ml Syringe) 10 ml IVP 0100, 0900,1700 [facility] Last Admin: 11/21/23 08:39 Dose: 10 ml estradioL [Estradiol] 4 mg PO DAILY 10/30/23 Acetaminophen [Tylenol] 1,000 mg PO Q8HR PRN 11/14/23 Nortriptyline [Pamelor] 10 mg PO HS 11/14/23 Ondansetron HCl 4 mg PO PRN PRN 11/14/23 oxyCODONE [Roxicodone] 1 tab PO Q4-6H PRN 11/14/23 Cholecalciferol (Vitamin D3) [Is-D-10,000] 250 mcg PO DAILY 11/15/23 Cyanocobalamin (Vitamin B-12) [Vitamin B12] 500 mcg PO UD 11/15/23 Magnesium Citrate 100 mg PO DAILY PRN 11/15/23 - Allergies Allergies/Adverse Reactions: Allergies Allergy/AdvReac Type Severity Reaction Status Date / Time adhesive tape Allergy Rash Verified 11/14/23 15:44 Bleach (Sodium Hypochlorite) Allergy Rash Verified 11/14/23 15:44 metoclopramide [From Reglan] Allergy Unknown Verified 11/14/23 15:44 morphine Allergy Emesis Verified 11/14/23 15:44 prochlorperazine Allergy Emesis Verified 11/14/23 15:44 [From Compazine] hydromorphone [From Dilaudid] AdvReac Emesis Verified 11/14/23 15:44 tramadol AdvReac Emesis Verified 11/14/23 15:44 Review of Systems - Constitutional Constitutional: reports: Fatigue, Weakness, Weight loss - Cardiovascular Cardiovascular: reports: Decr. exercise tolerance - Respiratory Respiratory: reports: SOB with exertion, Other (recent left pleural effusion) - Gastrointestinal Gastrointestinal: reports: Constipation (no bowel movement since ), Nausea (better with scop. has ondansetron at home), Good appetite (newly im proved) - Musculoskeletal Musculoskeletal: reports: Stiffness, Muscle weakness, Joint pain (bilateral hip pain), Other (recommended transport chair and decreased weight bearing until underlying etiology defined) - Neurological Neurological: reports: General weakness, Numbness - Psychiatric Psychiatric: reports: Depression, Anxiety (has been difficult with pending work up / navigating health care system) - Hematologic/Lymphatic Hematologic/Lymph: reports: Anemia (received iron transfusion) Physical Exam - Vital Signs Vital Signs: Vital Signs x48h Temp Pulse Resp BP BP Pulse Ox 11/21/23 08:41 36.3 C L 67 18 149/86 H 94 11/21/23 04:45 36.6 C 73 20 142/89 H 95 - Physical Exam General Appearance: positive: Alert, Mild distress (from persistent pain) Eyes Bilateral: positive: Normal inspection ENT: positive: No signs of dehydration Neck: positive: Trachea midline Respiratory: positive: No respiratory distress Skin: positive: Pallor Extremities: positive: No pedal edema Neurologic/Psychiatric: positive: Oriented x3 Palliative Care Pain: Pain improved, Location (bilateral hip pain, worsens with activity; using oxycodone 10 mg and acetaminophen every 4 hours with some supplemental IV), Severity (4/10 at rest; 10/10 with activity) Tiredness/Fatigue: Moderate (4-6) Drowsiness/Sedation: None Nausea: Moderate (4-6), With vomiting Anorexia: Moderate (4-6) Depression: Moderate (4-6) Anxiety: Severe (7-10) Constipation: Yes, Opoid induced, Unmanaged Performance Status: Discussed benefits and burdens, in the context of activity level, weightbearing does increase pain, is obtaining wheelchair, walker, encouraged to minimize weightbearing and can focus later on transition to increasing activity and rehab focus. Current goals are to minimize aggravating pain adn no falls. - Palliative Care Discussion: Patient's immediate goals are to get some understanding of her underlying diagnosis, what might be treatment plan or options, and implications for future in the context of prognosis. She has had difficulty navigating in the context of this, is hoping to receive her care closer to home and to community services. 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 Results - Lab Results Lab results reviewed: Yes Fish Bones: 11/21/23 05:52 11/21/23 05:52 Lab and Imaging Results: Lab Results x24hrs 11/21/23 11/21/23 11/20/23 Range/Units 05:52 05:52 13:31 WBC 16.6 H (4.8-10.8) x10^3/uL RBC 3.49 L (4.20-5.40) 10^6/uL Hgb 9.9 L (12.0-16.0) g/dL Hct 31.2 L (37.0-47.0) % MCV 89.4 (81.0-99.0) fL MCH 28.4 (27.0-31.0) pg MCHC 31.7 L (32.0-36.0) g/dL RDW 12.9 (12.0-15.0) % Plt Count 356 (130-450) 10^3/uL MPV 9.1 (7.9-10.8) fL Neut # (Auto) 12.3 H (1.5-6.6) 10^3/uL Lymph # (Auto) 1.9 (1.5-3.5) 10^3/uL [place] # (Auto) 1.2 H (0.0-1.0) 10^3/uL Eos # (Auto) 1.0 H (0.0-0.7) 10^3/uL Baso # (Auto) 0.1 (0.0-0.1) 10^3/uL Absolute Nucleated RBC 0.00 x10^3/uL Nucleated RBC % 0.0 /100WBC PT 14.3 H (9.9-12.6) secs INR 1.3 H (0.8-1.2) Sodium 135 (135-145) mmol/L Potassium 3.6 (3.5-4.5) mmol/L Chloride 100 L (101-111) mmol/L Carbon Dioxide 27 (21-32) mmol/L Anion Gap 8.0 (6-13) BUN 10 (6-20) mg/dL Creatinine 0.7 (0.6-1.3) mg/dL Estimated GFR (MDRD) 87 L (>89) Glucose 95 (74-104) mg/dL Calcium 9.9 (8.5-10.3) mg/dL Impression and Recommendations - Palliative Care Impression: This is a 53-year-old woman with history of non-Hodgkin's lymphoma, now presenting with concern for malignancy of current unknown origin. Patient's pain still only minimally controlled, but tolerable, complicated by both chronic pain history and opioid intolerances. Patient to be discharged with current plan in place, goal to finish staging and workup and pursue outpatient oncology support. Recommendations/Counseling Done: 1. Pain of neoplastic origin. Patient does present with osteolytic lesion due to mets with poorly controlled pain, unfortunately need to switch to fentanyl for outpatient dosing. Would recommend increasing fentanyl further from 50 mcg to 75 mcg given continued opioid equal analgesic and load. Counseling with patient regarding use of short acting oxycodone, with translation to titration of fentanyl. Patient also using acetaminophen 500 mg every 4 hours [id number], as it does help but she is cautioned to not use more than 3000 mg in 24 hours. Patient has done well with the scopalamine patch, would recommend on discharge in addition to her ondansetron. 2. Anxiety. This is multifactorial and appropriate given the situation, patient currently started on duloxetine 20 mg, would continue to titrate up on outpat ient basis, can titrate up to 30 mg in one week. Patient with longstanding peripheral neuropathy, this will be of benefit as well. 3. Opioid-induced constipation. Patient and spouse have been educated on bowel program. 4. Cancer of unknown origin stage IV. Patent patient does have PET scan pending at scheduled hospital, is working with PCP on getting appropriate staging and biopsy to make referral. Have notified [facility] given that is at this point where they would like to go, she is on the radar screen for pending referrals. 35 minutes with review of chart, counseling with patient and regarding pain and symptom management, anticipatory guidance, and coordination of care with hospitalist team.
--- NOTE | 2023-11-21 12:21 | Discharge Plan ---
Discharge Plan Problem Reviewed?: Yes Disposition: Home, Self Care Condition: Stable Prescriptions: DULoxetine [Cymbalta] 20 mg PO DAILY #30 cap fentaNYL [Fentanyl 75mcg patch] 1 each TD Q3D #3 patch Ondansetron HCl 4 mg PO PRN PRN #30 tab PRN Reason: Nausea / Vomiting oxyCODONE [Roxicodone] 1 tab PO Q4-6H PRN #30 tab PRN Reason: Pain Scopolamine Patch [Transderm-Scop] 1 patch TOP Q3D #3 patch Diet: Regular Activity Restrictions: Activity as Tolerated Shower Restrictions: No Driving Restrictions: Yes (no driving while on opioids) Health Concerns: You presented to our emergency room with increasing intractable bilateral hip pain, generalized weakness, and fatigue that have been getting worse for the last 2 months. You have been recently admitted to the [place] for pneumonia and required thoracentesis for a large pleural effusion. Thoracentesis is where they removed fluid from the chest wall cavity. While you were evaluated in the emergency room, we found her to have a large eroding lesion in both of your hips. We are worried that this is cancer. And that the cancer has become metastatic to your bones. We then proceeded to give you increasing doses of intravenous pain medication to be able to control your pain. Unfortunately you cannot be in the outpatient setting with intravenous pain medicine and you are being discharged on a fentanyl patch and oxycodone tablets. We had initially started OxyContin, long- acting oxycodone, but it is not paid for by your insurance company. As such that is why we are using fentanyl. We started at 25 mcg, then increase to 50 mcg, and are now sending you home on 75 mcg. You need to be on the 75 mcg for 2 to 3 days before it can be established if the 75 mcg patch will work for you. We did try and do a bone biopsy while you were here. Unfortunately radiology was not able to accommodate you from a scheduling perspective. You will need to have a bone biopsy in the outpatient setting. Plan of Treatment: 1. Please see your primary care provider at the [facility] in [place] in the next 1 to 2 weeks. 2. Please keep your CT PET scan appointment at [facility] [place] on November 22. 3. Your primary care provider will then need to schedule a bone biopsy. 4. Once you have had your bone biopsy and your PET CT scan has been done, your primary care provider can then refer you to oncology. 5. Please call me, Dr. Hurd, at [phone] on November 22 to see if your fentanyl patch at 75 mcg is working or not. Care Goals: To have a diagnosis of what type of cancer was and to start treatment Assessment: Patient is alert, oriented to person, place, time, situation No Smoking: If you smoke, Please STOP! Call for help.
--- NOTE | 2023-11-22 06:42 | DISCHARGE SUMMARY ---
"Discharge Summary Admit Date: 11/15/23 Discharge Date: 11/21/23 Discharging Provider: Shannon Hurd MD Primary Care Provider: [facility] Raad Iniguez Code Status: Attempt Resuscitation Condition at Discharge: Stable Discharge Disposition: 01 Home, Self Care - DIAGNOSES Discharge Diagnoses with Status of Each Condition: 1. Intractable pain 2. 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 Iron deficiency anemia 4. Pleural effusion 5. Necrotic pulmonary nodules 6. Leukocytosis - HPI History of Present Illness: Patient presented to the ED for evaluation of intractable bilateral hip pain, generalized weakness and fatigue. symptoms have progressively worsened for the past 2 months. she was recently admitted and treated for pneumonia and required thoracentesis for large pleural effusion. In the ED patient underwent further evaluation of her hip adn was found to have lytic leison of her bilateral hip. This was concerning for metastatic disease. History - Past Medical History Musculoskeletal: reports: Fibromyalgia, Chronic back pain MRSA Hx?: No Other Past Medical History: Chronic regional pain syndrome - CONSULTS | PROCEDURES Procedures: Abdomen pelvis CT with stable lytic lesion of the right iliac wing without displaced pathologic fracture. Subtle disruption of the anterior and posterior cortex of the right iliac wing associated with the mass. Early nondisplaced pathologic fracture cannot be excluded. Stable hypodensity of the right hepatic dome of indeterminate nature. Significant fecal stasis throughout the ascending colon and transverse colon extended to the proximal descending colonic flexure. Chest CT with interval complete resolution of a left pleural effusion with basilar atelectasis. Pleural-based necrotic lesions involving the anterior and lateral periphery of the left upper lobe concerning for pulmonary malignancy. Node in the right upper lobe. Spiculated nodule in the anterior medial aspect of right upper lobe. Mildly enlarged mediastinal and right hilar lymph nodes. - HOSPITAL COURSE Hospital Course: She was started on IV pain medications and then transition to OxyContin. However we found out that a palliative care that OxyContin is not paid for in the outpatient setting and she must fail morphine or fentanyl first. As such after several laborious days of finally guiding her to a acceptable pain levels with OxyContin we had to start from scratch using fentanyl. Fentanyl was gradually increased until she was able to have acceptable levels, not resolved, of pain at 75 mcg. Oxycodone 10 mg every 4-6 hours also prescribed. We did try and do a bone biopsy but the first radiologist said it was too late in the day, the second radiologist says I do not do those, and on the third day radiology was shut down for biopsies. She is discharged in stable but guarded slightly poor condition depending on her biopsy results. Temperature is 36.3. Heart rate 149/86. Respirations 18. 94% on room air. Cachectic 6 foot tall female at 67.5 kg. Bilateral temporal wasting, cachectic appearance. Clear lungs. Regular rate and rhythm. Abdomen is soft and nontender. Extremities without edema. Ambulation is difficult because of pain. Greater than 30 minutes was spent coordinating discharge. A lot of [id number] occurred because the wrong pharmacy was placed in the chart. As such her initial opioid prescriptions went to the wrong pharmacy and had to be resubmitted to a second pharmacy through great difficulty with using doctor first. She also wanted 10 mg of oxycodone not 5 mg of oxycodone. It is hoped that she can have an expeditious workup through the [facility] in [place]. Social work and palliative care have spoken to the [facility]. She has a PET scan that needs to be done in the next day and from there a bone biopsy and from there can be referred to oncology. - ALLERGIES Allergies/Adverse Reactions: Allergies Allergy/AdvReac Type Severity Reaction Status Date / Time adhesive tape Allergy Rash Verified 11/14/23 15:44 Bleach (Sodium Hypochlorite) Allergy Rash Verified 11/14/23 15:44 metoclopramide [From Reglan] Allergy Unknown Verified 11/14/23 15:44 morphine Allergy Emesis Verified 11/14/23 15:44 prochlorperazine Allergy Emesis Verified 11/14/23 15:44 [From Compazine] hydromorphone [From Dilaudid] AdvReac Emesis Verified 11/14/23 15:44 tramadol AdvReac Emesis Verified 11/14/23 15:44 - MEDICATIONS Home Medications: Ambulatory Orders Medication Instructions Recorded Confirmed estradioL [Estradiol] 4 mg PO DAILY 10/30/23 11/14/23 Acetaminophen [Tylenol] 1,000 mg PO Q8HR PRN 11/14/23 11/15/23 Nortriptyline [Pamelor] 10 mg PO HS 11/14/23 11/14/23 Cholecalciferol (Vitamin D3) 250 mcg PO DAILY 11/15/23 11/15/23 [Is-D-10,000] Cyanocobalamin (Vitamin B-12) 500 mcg PO UD 11/15/23 11/15/23 [Vitamin B12] Magnesium Citrate 100 mg PO DAILY PRN 11/15/23 11/15/23 DULoxetine [Cymbalta] 20 mg PO DAILY #30 tab 11/21/23 Ondansetron HCl 4 mg PO PRN PRN #30 tab 11/21/23 Oxycodone HCl 10 mg PO Q4H PRN #30 tablet 11/21/23 Scopolamine Patch [Transderm-Scop] 1 each TOP Q3D #3 patch 11/21/23 fentaNYL [Fentanyl 25mcg patch] 3 each TD Q3D #15 patch 11/22/23 - LABS Result Diagrams: 11/21/23 05:52 11/21/23 05:52"
== END 2023-11-21 13:30 | disposition home or self-care (01) ==
LOC: ED 15:31 → MS2 21:49
PROVIDERS: ADMIT Hospitalist; ATTEND Specialist
DX: G89.3 Neoplasm related pain (acute) (chronic) (principal); C79.51 Secondary malignant neoplasm of bone; R91.8 Other nonspecific abnormal finding of lung field; R59.0 Localized enlarged lymph nodes; F41.9 Anxiety disorder, unspecified; K59.03 Drug induced constipation; T40.2X5A Adverse effect of other opioids, initial encounter; G62.9 Polyneuropathy, unspecified; Z85.72 Personal history of non-Hodgkin lymphomas; D64.9 Anemia, unspecified; K76.9 Liver disease, unspecified; J98.11 Atelectasis; Z87.01 Personal history of pneumonia (recurrent)
CPT/HCPCS: 36415; 71260; 74177; 80048; 80053; 82306; 82728; 83540; 83735; 84466; 85025; 85610; 93005; 96365; 96366; 96372; 96375; 96376; 97116; 97161; 97165; 99285; A9270; G0378; J1170; J1750; J3490; Q9967

== ENCOUNTER → 2023-11-19 | Outpatient (CLI) | payer OTHER | LOC: PC 08:00 | PROVIDERS: ATTEND Nurse Practitioner Adult Health | DX: Z53.9 Procedure and treatment not carried out, unspecified reason (principal) ==

== ENCOUNTER → 2023-11-21 | Outpatient (CLI) | payer OTHER | LOC: PC 08:00 | PROVIDERS: ATTEND Nurse Practitioner Adult Health | DX: Z53.9 Procedure and treatment not carried out, unspecified reason (principal) ==

== ENCOUNTER 2023-11-30 08:00 | Outpatient (CLI) | payer OTHER | END 2023-11-30 23:59 | disposition home or self-care (01) | LOC: PC 08:00 | PROVIDERS: ATTEND Nurse Practitioner Adult Health | DX: Z51.5 Encounter for palliative care (principal); C80.1 Malignant (primary) neoplasm, unspecified; C79.51 Secondary malignant neoplasm of bone; M62.81 Muscle weakness (generalized); G89.29 Other chronic pain; Z79.899 Other long term (current) drug therapy; F64.0 Transsexualism; J90 Pleural effusion, not elsewhere classified; R11.2 Nausea with vomiting, unspecified; T40.2X5A Adverse effect of other opioids, initial encounter; G62.9 Polyneuropathy, unspecified; M79.7 Fibromyalgia; T50.905S Adverse effect of unspecified drugs, medicaments and biological substances, sequela; Z91.85 Personal history of military service; Z85.72 Personal history of non-Hodgkin lymphomas; Z79.891 Long term (current) use of opiate analgesic; Z87.891 Personal history of nicotine dependence | CPT/HCPCS: 99215; 99417 ==

== ENCOUNTER 2023-12-11 08:00 | Outpatient (CLI) | payer OTHER | END 2023-12-11 23:59 | disposition home or self-care (01) | LOC: PC 08:00 | PROVIDERS: ATTEND Nurse Practitioner Adult Health | DX: Z51.5 Encounter for palliative care (principal); G89.3 Neoplasm related pain (acute) (chronic); C80.1 Malignant (primary) neoplasm, unspecified; C79.51 Secondary malignant neoplasm of bone; K59.03 Drug induced constipation; T40.2X5A Adverse effect of other opioids, initial encounter; F41.9 Anxiety disorder, unspecified; Z85.72 Personal history of non-Hodgkin lymphomas; G62.9 Polyneuropathy, unspecified; R63.4 Abnormal weight loss; R11.2 Nausea with vomiting, unspecified; Z71.89 Other specified counseling; F64.0 Transsexualism | CPT/HCPCS: 99350 ==